=== PATIENT | female | born 1975 | race Two or more races ===

== ENCOUNTER 2024-10-08 10:36 | Emergency (ER) | payer MEDICAID, SELFPAY ==
--- NOTE | 2024-10-08 | XR_ITS ---
Examinations: MRI Brain without intravenous contrast. MRI brain with intravenous contrast MRA brain with intravenous contrast. MRA brain without intravenous contrast MRA neck with intravenous contrast Date and time of exam: October 08, 2024 1642 hours Comparison December 18, 2021 INDICATIONS: Right-sided headaches, upper and lower right extremity sensory deficit heaviness in the right leg 2 days Technique: Multiple axial and sagittal images of the brain have been obtained Siemens high-resolution 1.5 Shonda short bore scanner is utilized. Sagittal sections, T1-weighted, TR 500, TE 14 Axial sections proton density and T2-weighted, TR 3,000, TE 34, TR 3,000, TE 91 Inversion recovery axial images, TR 9,260, TE 111, TI 2,500 Diffusion weighted images, axial sections, TR 4,800, TE 128, B value 1,000 Axial sections, ADC map, TR 4,800, TE 128. Contrast images have been obtained post intravenous 19 cc Gadolinium. T1-weighted axial and coronal images post contrast have been obtained. Angiographic images of neck and brain are obtained pre and post contrast. 3-D post processing performed, including brain, extracranial neck arterial maximum intensity projections Findings: Sellaturcica is not enlarged. The optic chiasm and infundibular stalk are not remarkable. Prepontine and interpeduncular cisterns are not enlarged. No localized enlargement of the medulla or lisandro. Fourth ventricle and cerebellar tonsils normal in position. Subacute hemorrhage is not seen. Fourth ventricle is midline. Mass in the cerebellopontine angle region is not evident. 7th and 8th nerve complexes exhibits symmetry. Globes are symmetrical with no retro-orbital mass. Increased white matter signal evident, punctate foci increased signal in the brainstem, FLAIR image 10, punctate focus left frontal white matter FLAIR image 15 as well as FLAIR image 16 and 17, punctate foci increased signal in left parietal white matter FLAIR image 17, right frontal white matter FLAIR image 20 Diffusion-weighted images demonstrateno focus of restricted diffusion. Mass-effect upon the ventricular system is not identified. Abnormal contrast enhancement is not seen. MRA brain carotid images no carotid stenoses, no cerebral large vessel occlusions Impression: Scattered punctate foci increased signal in the cerebral white matter and brainstem demyelinating disease pattern No acute infarct
[2024-10-08 10:51] VITALS: BP 149/88; PULSE 94; RESP 18; TEMP 36.8; O2SAT 98; BMI 26.1
--- NOTE | 2024-10-08 11:03 | XR_ITS ---
Examination: CT brain head without contrast. 2-D sagittal coronal reconstructions Date and time of exam:October 08, 2024 1113 hours Comparison 02/11/2024 INDICATIONS: Right-sided headache beginning 2 days ago CTDI: vol (mGy):46.7 DLP: (mGycm):997 Technique: Multiple CT axial sections of the brain have been obtained, 5 mm slice thickness. Contrast has not been administered. 2-D sagittal, coronal reconstructions have been obtained Low dose protocols were performed. One or more of the following dose reduction techniques were used; automated exposure control, adjustment of the mA and/or KV according to patient size, use of iterative reconstruction technique. Findings: No significant ventricular enlargement. Intra-axial or extra-axial hemorrhage density is not seen. No mass effect or midline shift Basal cisterns are not remarkable. Fourth ventricle is midline. Cranial vault intact. Impression: Negative for acute hemorrhage, mass effect or midline shift Advise clinical correlation and follow-up accordingly
--- NOTE | 2024-10-08 11:04 | PD.EDRME ---
Rapid Medical Screening Exam E Arrival date/time: 10/08/24 10:36 49-year-old female with a history of a stroke, presents to the emergency room with a chief complaint of a headache to the right side of her head and right weakness to her lower extremities that began yesterday afternoon. I have greeted and performed a focused initial assessment of this patient. A comprehensive ED assessment and evaluation of the patient, analysis of all test results, and completion of the medical decision making process will be conducted by additional ED providers. Chief Complaint: Headache Vital signs: Vital Signs Temperature 98.2 F 10/08/24 10:51 Pulse Rate 94 10/08/24 10:51 Respiratory Rate 18 10/08/24 10:51 Blood Pressure 149/88 H 10/08/24 10:51 Pulse Oximetry (%) 98 10/08/24 10:51 Oxygen Delivery Method Room Air 10/08/24 10:51 Vital signs reviewed by provider: Yes
[2024-10-08 12:14] LABS: Basophils # (Auto) 0.1 Thou/mm3 (0.0-0.2); Basophils % (Auto) 1 % (0-2.5); Eosinophils # (Auto) 0.1 Thou/mm3 (0.0-0.5); Eosinophils % (Auto) 2 % (0-10); Hematocrit 44.1 % (36.0-46.0); Hemoglobin 15.6 g/dL (12.0-16.0); Immature Granulocytes % (Auto) 0 % (0-0); Immature Granulocytes Auto 0.02 Thou/mm3 (0.00-0.00); Lymphocytes # (Auto) 2.5 Thou/mm3 (1.0-4.8); Lymphocytes % (Auto) 33 % (10-50); Mean Corpuscular HGB Conc 35.4 g/dl (31.0-37.0); Mean Corpuscular Hemoglobin 31.3 pg (25.0-35.0); Mean Corpuscular Volume 89 fL (80-100); Monocytes # (Auto) 0.4 Thou/mm3 (0.0-0.8); Monocytes % (Auto) 5 % (0-12); Neutrophils # (Auto) 4.6 Thou/mm3 (1.8-7.7); Neutrophils % (Auto) 60 % (37-80); Nucleated Red Blood Cell % 0 /100 WBC (0); Platelet Count 242 Thou/mm3 (140-440); RDW Standard Deviation 39.2 fL (36.4-46.3); Red Blood Count 4.98 Miln/mm3 (4.00-5.20); White Blood Count 7.7 Thou/mm3 (3.6-11.0)
[2024-10-08 12:28] LABS: Partial Thromboplastin Time 27.6 Seconds (22.0-36.0); Prothrombin Time 11.1 Seconds (9.0-12.2)
[2024-10-08 12:36] LABS: Alanine Aminotransferase 16 U/L (10-49); Albumin, Serum 4.6 gm/dL (3.5-5.0); Albumin/Globulin Ratio 1.8 (1.2-2.2); Alkaline Phosphatase 67 U/L (46-116); Anion Gap 7 (7-16); Aspartate Amino Transferase 16 U/L (0-34); BUN/Creatinine Ratio 18 Ratio (12-20); Bilirubin,Total 0.8 mg/dL (0.3-1.2); Blood Urea Nitrogen 14 mg/dL (9-23); Calcium 9.1 mg/dL (8.3-10.6); Calcium (Corrected) 9.1 mg/dL (8.5-10.1); Carbon Dioxide 28.6 mMol/L (20.0-31.0); Chloride 102 mMol/L (98-107); Creatinine (Component) 0.8 mg/dL (0.6-1.3); Estimated Creatinine Clearance 85.1 mL/min (>60); Globulin 2.5 gm/dL (2.3-3.5); Glucose 168 mg/dL (74-106); Osmolality,Calculated 280 (275-295); Potassium 3.9 mMol/L (3.4-5.1); Sodium 138 mMol/L (136-145); Total Protein 7.1 gm/dL (5.7-8.2); eGFR > 60 See Note
[2024-10-08] MEDS: ACETAMINOPHEN 325 MG TABLET 650 MG PO (14:23)
--- NOTE | 2024-10-08 14:59 | PD.EDADULT ---
ED General RME/HPI General Chief complaint: Headache Stated complaint: Headache, shortness of breath, cant move right leg Time Seen by Provider: 10/08/24 16:34 Arrival date/time: 10/08/24 10:36 49-year-old female with a past medical history of right sided thromboembolic stroke as well as migraines presents to the ED with a complaint of right sided headache with right upper extremity and right lower extremity sensory deficit. She also states that her right leg feels heavy when she is walking. She has photophobia and phonophobia. She has not blurry vision as well. She denies any recent illness with fever, chills, cough, upper respiratory complaints. She has had nausea and vomiting but no diarrhea or abdominal pain. She has tried Tylenol and ibuprofen for her pain which has not been helpful. She has tried a previous migraine medication that melts under her tongue however she does not recall the name of the medication. Mode of arrival: wheelchair Limitations: language barrier ([employer] Clerk utilized.) RME / HPI RME / HPI narrative: 10/08/24 10:36 49-year-old female with a history of a stroke, presents to the emergency room with a chief complaint of a headache to the right side of her head and right weakness to her lower extremities that began yesterday afternoon. I have greeted and performed a focused initial assessment of this patient. A comprehensive ED assessment and evaluation of the patient, analysis of all test results, and completion of the medical decision making process will be conducted by additional ED providers. Related Data Home Medications ?Medication ?Instructions ?Recorded ?Confirmed canagliflozin 100 mg tablet 100 mg PO QDAY 07/23/19 07/23/19 (Invokana) aspirin 81 mg tablet,delayed 81 mg PO QDAY 01/29/21 01/29/21 release Previous Rx's ?Medication ?Instructions ?Recorded acetaminophen-caffeine 500 mg-65 1 tab PO Q6H PRN pain #30 tabs 02/11/24 mg tablet (Excedrin Tension Headache) ibuprofen 600 mg tablet 600 mg PO Q6H #30 tabs 02/11/24 tramadol 50 mg tablet 50 mg PO BID PRN pain #6 tabs 02/11/24 Allergies Allergy/AdvReac Type Severity Reaction Status Date / Time Sulfa (Sulfonamide Allergy Intermediate Rash Verified 10/08/24 10:40 Antibiotics) Review of Systems Review of Systems Systems Reviewed: All systems reviewed, normal except as documented Past Medical History Past Medical History NEUROLOGIC: Positive Migraine; Negative Neurological Disorders CARDIAC: Negative Congestive Heart Failure RESPIRATORY: Positive Chronic Obstructive Pulmonary Disease (COPD) GASTROINTESTINAL: Positive Gastrointestinal Disorders (Gastritis); Negative Gastroesophageal Reflux Disease GENITOURINARY: Negative Genitourinary Disorders or Renal Disease ENT: Positive Cataracts (right eye) ENDOCRINE: Positive Endocrine Disorders and Diabetes Mellitus Type 2; Negative Diabetes Mellitus Type 1 HEMATOLOGIC: Negative Blood Disorders OTHER HISTORY: Positive Falls (3-4 years ago) and Chicken Pox; Negative Blood Transfusions or Cancer Surgical History SURGICAL: Positive Section; Negative Joint Replacement Social History SMOKING STATUS: Never smoker ED Exam Narrative Physical exam: 49-year-old female appears in moderate pain distress, photophobia and phonophobia noted. Right pupil 1 to 2 mm, left pupil 2 mm. EOM's intact. Facial sensory is normal. Contralateral deficit (cheek), no tongue deviation. +Left lateral gaze deviation (normal per family). Equal brush painter strength, equal pedal push and pull. Right upper and lower extremity sensory deficit noted. DTRs unable to be obtained bilaterally (inability to relax). Lungs are clear, regular rate and rhythm without murmurs noted. Abdomen is soft and nontender. Palpation of the scalp reveals multiple small occipital adenopathy with 1 folliculitis lesion noted to the posterior scalp. General Limitations: Present language barrier (C[employer] Control Clerk utilized.) General appearance: Present in distress Course Course Course Narrative: Patient was given Tylenol 650 mg p.o. Labs reveal a normal CBC and normal coags. Chemistry panel is normal with the exception of an elevated glucose of 168. Urine hCG is negative. Head CT reveals: Negative for acute hemorrhage, mass effect or midline shift Brain MRI reveals: Scattered punctate foci increased signal in the cerebral white matter and brainstem demyelinating disease pattern. No acute infarct. She was given Benadryl 25 mg p.o. as well as Compazine 10 mg p.o. She was then given Toradol 30 mg IV, Benadryl 25 mg IV as well as Reglan 10 mg IV. Patient was discharged home in stable and improved condition. Quality Measures none Orders Category Date Time Status IV [Insert IV] NOW Care 10/08/24 15:[address] head/brain wo con Stat Exams 10/08/24 11:03 Completed MR brain wwo MRA brn wo spain w Stat Exams 10/08/24 Completed CBC Stat Lab 10/08/24 12:04 Completed CMP [Comprehensive Metabolic Panel] Stat Lab 10/08/24 12:04 Completed HCG Qualitative,Urine Stat Lab 10/08/24 15:42 Completed PT [Prothrombin Time with INR] Stat Lab 10/08/24 12:04 Completed PTT [Partial Thromboplastin Time] Stat Lab 10/08/24 12:04 Completed Acetaminophen Tab [Tylenol Tab] Med 10/08/24 11:03 Discontinued 650 mg PO X1 ONE DiphenhydrAMINE INJ [Benadryl Inj] Med 10/08/24 19:21 Discontinued 25 mg IV X1 ONE DiphenhydrAMINE [Benadryl] Med 10/08/24 15:02 Discontinued 25 mg PO X1 ONE Ketorolac Inj [Toradol Inj] Med 10/08/24 19:18 Discontinued 30 mg IVP X1 ONE Metoclopramide Inj [Reglan Inj] Med 10/08/24 19:18 Discontinued 10 mg IVP X1 ONE Prochlorperazine Maleate [Compazine] Med 10/08/24 15:02 Discontinued 10 mg PO X1 ONE Reevaluation(s) Reevaluation #1: Patient is still having headache, therefore Benadryl and Compazine was ordered. Time: 15:00 Reevaluation #2: She is still having headache, therefore Toradol, Benadryl and Reglan were ordered. Time: 19:15 Reevaluation #3: Improved Time: 21:50 Vital Signs Vital signs: Vital Signs Temperature 98.2 F 10/08/24 10:51 Pulse Rate 94 10/08/24 10:51 Respiratory Rate 18 10/08/24 10:51 Blood Pressure 149/88 H 10/08/24 10:51 Pulse Oximetry (%) 98 10/08/24 10:51 Oxygen Delivery Method Room Air 10/08/24 10:51 Discharge Plan Plan Patient Disposition: HOME (Self Care) Discharge Disposition comment: Stable and improved Prescriptions/Referrals Prescriptions/Med Rec: No Action Invokana 100 mg Tablet 100 mg PO QDAY aspirin 81 mg Tablet,Delayed Release (Dr/Ec) 81 mg PO QDAY Excedrin Tension Headache 500-65 mg tablet 1 tab PO Q6H PRN (Reason: pain) Qty: 30 0RF tramadol 50 mg tablet 50 mg PO BID PRN (Reason: pain) Qty: 6 0RF ibuprofen 600 mg tablet 600 mg PO Q6H Qty: 30 0RF Referrals: Osiris Villareal PA-C [Primary Care Provider] - In 1 week Problem List Clinical Impression: Atypical migraine Patient/Caregiver Discharge Instructions Education Materials: Migraines and Cluster Headaches, Headache Migraine Triggers Prevent, Headache Migraine Meds Lifestyle Additional Instructions: Follow-up with your primary care physician in 24 to 48 hours. Return to the ED for any new or worsening symptoms. Print Language: Setswana Stand Alone Forms: [employer] Award Info., Patient Portal Info Letter PA/VIVIANA Supervising Physician PA/VIVIANA Supervising Physician: Dr. Wyatt MDM Narrative MDM hospital course (for use when minimal MDM required): 49-year-old female with a past medical history of right sided thromboembolic stroke as well as migraines presents to the ED with a complaint of right sided headache with right upper extremity and right lower extremity sensory deficit. She also states that her right leg feels heavy when she is walking. She has photophobia and phonophobia. She has not blurry vision as well. She denies any recent illness with fever, chills, cough, upper respiratory complaints. She has had nausea and vomiting but no diarrhea or abdominal pain. She has tried Tylenol and ibuprofen for her pain which has not been helpful. She has tried a previous migraine medication that melts under her tongue however she does not recall the name of the medication. 49-year-old female appears in moderate pain distress, photophobia and phonophobia noted. Right pupil 1 to 2 mm, left pupil 2 mm. EOM's intact. Facial sensory is normal. Contralateral deficit (cheek), no tongue deviation. +Left lateral gaze deviation (normal per family). Equal brush painter strength, equal pedal push and pull. Right upper and lower extremity sensory deficit noted. DTRs unable to be obtained bilaterally (inability to relax). Lungs are clear, regular rate and rhythm without murmurs noted. Abdomen is soft and nontender. Palpation of the scalp reveals multiple small occipital adenopathy with 1 folliculitis lesion noted to the posterior scalp. Patient was given Tylenol 650 mg p.o. Labs reveal a normal CBC and normal coags. Chemistry panel is normal with the exception of an elevated glucose of 168. Urine hCG is negative. Head CT reveals: Negative for acute hemorrhage, mass effect or midline shift Brain MRI reveals: Scattered punctate foci increased signal in the cerebral white matter and brainstem demyelinating disease pattern. No acute infarct. She was given Benadryl 25 mg p.o. as well as Compazine 10 mg p.o. She was then given Toradol 30 mg IV, Benadryl 25 mg IV as well as Reglan 10 mg IV. Patient was discharged home in stable and improved condition. Clinical Information Provided by: patient Medical Records reviewed [facility] Meds/Rx considered, not ordered None Labs/Rad/Tests considered, not ordered None Chronic Illness/Social Conditions which may negatively complicate care or outcome(s)-explain: other (History of thromboembolic stroke and history of migraines.) EKG EKG not done Labs Labs: Interpreted by ne Lab(s) Interpretation(s): As noted above Imaging Imaging interpretation: none or see narrative above Imaging Interpretation(s): As noted above Medication Administration(s) Medication Administration History Discontinued Medications Acetaminophen (Acetaminophen 325 Mg Tablet) 650 mg PO X1 ONE Stop: 10/08/24 11:04 Last Admin: 10/08/24 14:23 Dose: 650 mg Documented By: Diphenhydramine HCl (Diphenhydramine 25 Mg Capsule) 25 mg PO X1 ONE Stop: 10/08/24 15:03 Last Admin: 10/08/24 15:27 Dose: 25 mg Documented By: ER Diphenhydramine HCl (Diphenhydramine Inj 50 Mg/Ml Vial) 25 mg IV X1 ONE Stop: 10/08/24 19:22 Last Admin: 10/08/24 21:37 Dose: 25 mg Documented By: CANDELARIA Ketorolac Tromethamine (Ketorolac Inj 30 Mg/Ml Vial) 30 mg IVP X1 ONE Stop: 10/08/24 19:19 Last Admin: 10/08/24 21:38 Dose: 30 mg Documented By: CANDELARIA Metoclopramide HCl (Metoclopramide Inj 5 Mg/Ml Vial 2 Ml) 10 mg IVP X1 ONE; Protocol Stop: 10/08/24 19:19 Last Admin: 10/08/24 21:38 Dose: 10 mg Documented By: CANDELARIA Prochlorperazine Maleate (Prochlorperazine Maleate 5 Mg Tablet) 10 mg PO X1 ONE Stop: 10/08/24 15:03 Last Admin: 10/08/24 15:03 Dose: Not Given Documented By: Non-Admin Reason: Patient Refused As noted above Diagnosis Differential Diagnosis ED Complaint MDM: Ischemic stroke, hemorrhagic stroke, atypical migraine Diagnoses ruled out and/or further discussions: Hemorrhagic stroke, ischemic stroke
[2024-10-08 15:00] VITALS: BP 116/80; PULSE 87; RESP 18; TEMP 36.6; O2SAT 100
[2024-10-08] MEDS: DiphenhydrAMINE 25 MG CAPSULE PO (15:27)
[2024-10-08 16:26] LABS: HCG Qualitative,Urine Negative
[2024-10-08] MEDS: DiphenhydrAMINE INJ 50 MG/ML VIAL 25 MG IV (21:37)
[2024-10-08] MEDS: METOCLOPRAMIDE INJ 5 MG/ML VIAL 2 ML 10 MG IVP (21:38)
[2024-10-08] MEDS: KETOROLAC INJ 30 MG/ML VIAL IVP (21:38)
== END 2024-10-08 22:40 | disposition home or self-care (01) ==
PROVIDERS: Nurse Practitioner Family; Physician Assistant; Emergency Provider Family Medicine; PCP Specialist
DX: G43.009 Migraine without aura, not intractable, without status migrainosus (principal)
CPT/HCPCS: 36415; 70450; 70546; 70548; 70553; 80053; 81025; 85025; 85610; 85730; 96374; 96375; 99284; A9579; J1200; J1885; J2765; A9270

== ENCOUNTER 2025-03-06 13:37 | Inpatient (IN) | payer MEDICAID, SELFPAY ==
[2025-03-06] VITALS (8 sets, daily range): BP systolic 111–158; BP diastolic 77–94; PULSE 87–107; RESP 15–100; TEMP 36.4–36.9; O2SAT 98–100; BMI 25.8
--- NOTE | 2025-03-06 13:52 | EKG_ITS ---
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
--- NOTE | 2025-03-06 13:52 | XR_ITS ---
Examination: CT brain head without contrast. 2-D sagittal coronal reconstructions Date and time of exam:March 06, 2025, 1357 hrs. Indications: Stroke alert, onset focal neurologic deficit today including blurred vision headaches right-sided body weakness CTDI: vol (mGy):48.9 DLP: (mGycm):1000 Technique: Multiple CT axial sections of the brain have been obtained, 5 mm slice thickness. Contrast has not been administered. 2-D sagittal, coronal reconstructions have been obtained Low dose protocols were performed. One or more of the following dose reduction techniques were used; automated exposure control, adjustment of the mA and/or KV according to patient size, use of iterative reconstruction technique. Findings: No significant ventricular enlargement. Tiny intracranial calcifications Intra-axial or extra-axial hemorrhage density is not seen. No mass effect or midline shift Basal cisterns are not remarkable. Fourth ventricle is midline. Cranial vault intact. Impression: Negative for acute hemorrhage, mass effect or midline shift
--- NOTE | 2025-03-06 13:52 | XR_ITS ---
Examination: AP chest single view Technique: Sitting portable AP chest single view Date and time: March 06, 2025, 1421 hrs., Comparison November 19, 2023 Indications: Headache 1 week with shortness of breath worse today Findings: Normal heart size. Lungs are clear. The osseous structures are intact Impression: No active disease.
--- NOTE | 2025-03-06 13:52 | XR_ITS ---
Examination: CTA carotids with intravenous contrast CTA brain, head with intravenous contrast. 2-D sagittal, coronal reconstructions. 3-D reconstructions. Exam date and time: March 06, 2025, 1414 hrs. Indications: Stroke alert, onset blurred vision headaches right-sided body weakness today CTDI: vol (mGy) 11.8 DLP: (mGycm) 446 Technique: Multiple CTA axial brain, head carotid images post intravenous contrast injection 75 cc, [id number]. 2-D sagittal, coronal reconstructions. 3-D reconstructions, 3-D post processing including vascular maximum intensity projection images. Low dose protocols were performed. One or more of the following dose reduction techniques were used; automated exposure control, adjustment of the mA and/or KV according to patient size, use of iterative reconstruction technique. Findings: 4 mm posterior right thyroid lobe nodule No significant common carotid carotid bifurcation or internal carotid artery stenoses Dominant vertebral artery in the neck with no critical vertebral artery stenoses Intracranial vertebral arteries basilar artery posterior cerebral branches fill with no large vessel occlusions Petrous juxtasellar supraclinoid portions internal carotid arteries, M1 segments middle cerebral arteries middle cerebral artery trifurcation vessels and anterior cerebral arteries fill with no large vessel occlusions Impression: No significant neck arterial stenoses No cerebral large vessel arterial occlusions or thrombus
[2025-03-06 14:26] LABS: Basophils # (Auto) 0.0 Thou/mm3 (0.0-0.2); Basophils % (Auto) 1 % (0-2.5); Eosinophils # (Auto) 0.2 Thou/mm3 (0.0-0.5); Eosinophils % (Auto) 2 % (0-10); Hematocrit 43.7 % (36.0-46.0); Hemoglobin 15.5 g/dL (12.0-16.0); Immature Granulocytes Auto 0.02 Thou/mm3 (0.00-0.00); Lymphocytes # (Auto) 3.0 Thou/mm3 (1.0-4.8); Lymphocytes % (Auto) 48 % (10-50); Mean Corpuscular HGB Conc 35.5 g/dl (31.0-37.0); Mean Corpuscular Hemoglobin 30.9 pg (25.0-35.0); Mean Corpuscular Volume 87 fL (80-100); Monocytes # (Auto) 0.3 Thou/mm3 (0.0-0.8); Monocytes % (Auto) 4 % (0-12); Neutrophils # (Auto) 2.8 Thou/mm3 (1.8-7.7); Neutrophils % (Auto) 45 % (37-80); Nucleated Red Blood Cell # 0.00 Thou/mm3 (0.00-0.00); Nucleated Red Blood Cell % 0 /100 WBC (0); Platelet Count 238 Thou/mm3 (140-440); RDW Standard Deviation 37.3 fL (36.4-46.3); Red Blood Count 5.01 Miln/mm3 (4.00-5.20); White Blood Count 6.2 Thou/mm3 (3.6-11.0)
--- NOTE | 2025-03-06 14:29 | EDNOTE_ITS ---
Neuro Symptoms Deficit-RME/HPI General Chief Complaint: Neuro Symptoms/Deficit Stated Complaint: WARNER x 1 WK, WORSE AT 1330 TODAY & RIGHT FOOT NUMB Time Seen by Provider: 03/06/25 13:52 Arrival date/time: 03/06/25 13:37 Limitations: no limitations RME / HPI RME / HPI Narrative: DR. MARIA ELENA BLACKWELL ED EVALUATION: 50-year-old female with past medical history significant for diabetes mellitus and migraines presenting to the Emergency Department with complaints of a headache for one week, worsening today. Associated with right leg numbness and blurred vision. She denies nausea, vomiting, or chest pain. No recent illnesses or social history of substance use. Patient was previously admitted on 02/08/2024 for similar symptoms, during which a CVA was ruled out by Dr. Waldron. MRI at that time was negative for acute infarction and consistent with findings seen in chronic or hemiplegic migraine. Related Data Home Medications ?Medication ?Instructions ?Recorded ?Confirmed canagliflozin 100 mg tablet 100 mg PO QDAY 07/23/19 (Invokana) aspirin 81 mg tablet,delayed 81 mg PO QDAY 01/29/21 release Previous Rx's ?Medication ?Instructions ?Recorded acetaminophen-caffeine 500 mg-65 1 tab PO Q6H PRN pain #30 tabs 02/11/24 mg tablet (Excedrin Tension Headache) ibuprofen 600 mg tablet 600 mg PO Q6H #30 tabs 02/10 tramadol 50 mg tablet 50 mg PO BID PRN pain #6 tab s 02/11/24 Allergies Allergy/AdvReac Type Severity Reaction Status Date / Time Sulfa (Sulfonamide Allergy Severe Rash Verified 03/06/25 13:49 Antibiotics) Review of Systems Review of Systems Systems Reviewed: All systems reviewed, normal except as documented Past Medical History Past Medical History NEUROLOGIC: Positive Migraine RESPIRATORY: Positive Chronic Obstructive Pulmonary Disease (COPD) GASTROINTESTINAL: Positive Gastrointestinal Disorders ENT: Positive Cataracts ENDOCRINE: Positive Endocrine Disorders and Diabetes Mellitus Type 2 OTHER HISTORY: Positive Falls and Chicken Pox Surgical History SURGICAL: Positive Section Social History SMOKING STATUS: Never smoker SUBSTANCE USE: does not use ALCOHOL: Never ED Exam General Limitations: Present no limitations General appearance: Present alert and in no apparent distress Head Head exam: Present atraumatic, normocephalic and normal inspection Eye Eye exam: Present normal appearance, PERRL and EOMI ENT ENT exam: Present normal exam, normal oropharynx and mucous membranes moist Neck Neck exam: Present normal inspection, full ROM and trachea midline Chest Chest inspection: Present normal inspection and symmetric chest wall rise Respiratory Respiratory exam: Present normal lung sounds bilaterally Cardiovascular Cardiovascular exam: Present normal rhythm, tachycardia and normal heart sounds Abdominal Exam Abdominal exam: Present soft and normal bowel sounds; Absent distention, tenderness or guarding Extremities Exam Extremities exam: Present normal inspection and full ROM Back Exam Back exam: Present normal inspection and full ROM Neurological Exam Neurological exam: Present alert, oriented X3 and CN II-XII intact Psychiatric Psychiatric exam: Present normal affect and normal mood Skin Skin exam: Present warm, dry, intact and normal color Course Quality Measures none Orders Category Date Time Status Bedside Blood Glucose NOW Care 03/06/25 13:52 Active Phosphorus Processing Supervisor NOW Care 03/06/25 13:52 Active Continuous Pulse Oximetry NOW Care 03/06/25 13:52 Completed EKG (ED ONLY) *Do not use* NOW Care 03/06/25 13:52 Completed In and Out Catheter NEEDED Care 03/06/25 13:52 Active Insert IV NOW Care 03/06/25 13:52 Active NIH Stroke Scale now Care 03/06/25 13:52 Active NPO NOW Care 03/06/25 13:52 Active Neuro Check Q1HR Care 03/06/25 13:53 Active Nurse Swallow Screen x1 Care 03/06/25 13:52 Active Consult to Neurology / Tele-Neurology Routine Cons 03/06/25 13:[address] angio stroke protocol Stat Exams 03/06/25 13:[address] stroke protocol Stat Exams 03/06/25 13:52 Completed EKG (ED Only) Stat Exams 03/06/25 13:52 Draft XR chest 1V portable Stat Exams 03/06/25 13:52 Completed CBC Stat Lab 03/06/25 14:02 Completed Comprehensive Metabolic Panel Stat Lab 03/06/25 14:02 Completed Drug Screen,Urine Stat Lab 03/06/25 13:52 Ordered HCG Titer if Positive Stat Lab 03/06/25 14:02 Completed Magnesium Stat Lab 03/06/25 14:02 Completed Partial Thromboplastin Time Stat Lab 03/06/25 14:02 Completed Prothrombin Time with INR Stat Lab 03/06/25 14:02 Completed Troponin I Stat Lab 03/06/25 14:02 Completed Urinalysis, C/S if Indicated Stat Lab 03/06/25 13:52 Ordered Acetaminophen Tab [Tylenol Tab] Med 03/06/25 15:15 Discontinued 650 mg PO X1 ONE Ringers Lactated 1000 ml [Lactated Ringers] 1,000 ml Med 03/06/25 15:15 Active IV 999 mls/hr Oxygen Delivery NOW RT 03/06/25 13:52 Active Vital Signs Vital signs: Vital Signs Pulse Rate 107 H 03/06/25 13:53 Respiratory Rate 18 03/06/25 13:53 Blood Pressure 158/86 H 03/06/25 13:53 Pulse Oximetry (%) 99 03/06/25 13:53 Oxygen Delivery Method Room Air 03/06/25 13:53 Neuro Symptoms / Deficit MDM Narrative MDM Narrative:: Patient is a 50-year-old female with medical history notable for prior TIA, depression, migraines to the Emergency Department concerns for blurred vision, headache as well as numbness in her right leg and weakness in her right leg. Vital signs and exam as listed. Given patient with above neurofindings, activated as a stroke., Complex migraine, metabolic disturbance among others patient was evaluated by teleneurologist. Does not recommend tenecteplase at this time. Ordered CT brain, CT angio as well as labs and EKG. Patient is not , no acute metabolic disturbance. No acute hematologic abnormality. CT brain unremarkable, CT angio of the head and neck without any evidence of large vessel occlusion. On reevaluation patient hemodynamically stable not in distress, symptoms significantly improved will admit to the hospital service for workup and management of her acute neurologic symptoms concerning for possible TIA. Dinorah Merino am scribing for and in the presence of Dr. Magallon. Patient data External records reviewed:: [facility] previous records Clinical information provided by:: patient Social determinants that could affect healthcare access:: none Patient has the following chronic illnesses:: Medical history significant for diabetes mellitus and migraines. Patient was previously admitted on 02/08/2024 for similar symptoms, during which a CVA was ruled out by Dr. Waldron. MRI at that time was negative for acute infarction and consistent with findings seen in chronic or hemiplegic migraine. How is presenting disease/condition affected by chronic disease/condition?: exacerbated by Evaluation data The following diagnostics were reviewed and interpreted by me:: lab results, radiology exam(s) and EKG tracing(s) (My interpretation: EKG performed at 1413 hours, sinus tachycardia, rate 103, normal intervals, non specific T wave changes, not a cardiac alert) Lab and/or radiology exams considered but not ordered:: none Interpretation Summary: See MDM narrative above. Medications / Prescriptions Medications or Prescriptions considered but not ordered:: none Medication administrations:: Medication Administration History Lactated Ringer's (Lactated Ringers) 1,000 mls @ 999 mls/hr IV .Q1H1M ONE Stop: 03/06/25 16:15 Last Admin: 03/06/25 15:34 Dose: 999 mls/hr Documented By: MARY Discontinued Medications Acetaminophen (Acetaminophen 325 Mg Tablet) 650 mg PO X1 ONE Stop: 03/06/25 15:16 Last Admin: 03/06/25 15:34 Dose: Not Given Documented By: MARY Non-Admin Reason: Patient Refused see above if any Consultations Consultation(s) initiated? (list below): Yes Diagnosis Neuro Differential Diagnosis: other (Complicated migraine, TIA, and ischemic stroke.) Most likely diagnosis given after review of the tests above:: TIA Admission Indicated Admission indicated?: indicated Admission Request Was there a request for admission?: Yes Admission Attestation Admission request attestation: Discussed case with Hospitalist service regarding admission. Discussed patients ED course, exam findings, labs, and radiology results. The Hospitalist [agrees] to accept the patient for admission. Disposition Plan Disposition Plan: Admit Critical Care Time Critical Care Time Critical Care Time: Yes Total Critical Care Time (min.): 45 Attestation: Total critical care time: Approximately?45?minutes Due to a high probability of clinically significant, life threatening deterioration, the patient required my highest level of preparedness to intervene emergently and I personally spent this critical care time directly and personally managing the patient. This critical care time included obtaining a history; examining the patient; pulse oximetry; ordering and review of studies; arranging urgent treatment with development of a management plan; evaluation of patient's response to treatment; frequent reassessment; and, discussions with other providers. This critical care time was performed to assess and manage the high probability of imminent, life-threatening deterioration that could result in multi-organ failure. It was exclusive of separately billable procedures and treating other patients and teaching time. Please see MDM section and the rest of the note for further information on patient assessment and treatment Discharge Plan Plan Patient Disposition: Admit Acute Care w/in Hospital Prescriptions/Referrals Prescriptions/Med Rec: No Action Invokana 100 mg Tablet 100 mg PO QDAY aspirin 81 mg Tablet,Delayed Release (Dr/Ec) 81 mg PO QDAY Excedrin Tension Headache 500-65 mg tablet 1 tab PO Q6H PRN (Reason: pain) Qty: 30 0RF tramadol 50 mg tablet 50 mg PO BID PRN (Reason: pain) Qty: 6 0RF ibuprofen 600 mg tablet 600 mg PO Q6H Qty: 30 0RF Referrals: Osiris Villareal PA-C [Primary Care Provider] - In 1 week Problem List Clinical Impression: Transient cerebral ischemia Patient/Caregiver Discharge Instructions Print Language: American Stand Alone Forms: [facility]ina Award Info., Patient Portal Info Letter
[2025-03-06 14:33] LABS: INR 1.0 (0.9-1.3); Partial Thromboplastin Time 27.0 Seconds (22.0-36.0); Prothrombin Time 10.3 Seconds (9.0-12.2)
[2025-03-06 14:35] LABS: Alanine Aminotransferase 16 U/L (10-49); Albumin, Serum 4.5 gm/dL (3.5-5.0); Albumin/Globulin Ratio 1.8 (1.2-2.2); Alkaline Phosphatase 69 U/L (46-116); Anion Gap 11 (7-16); Aspartate Amino Transferase 16 U/L (0-34); BUN/Creatinine Ratio 14 Ratio (12-20); Bilirubin,Total 0.5 mg/dL (0.3-1.2); Blood Urea Nitrogen 10 mg/dL (9-23); Calcium 9.7 mg/dL (8.3-10.6); Calcium (Corrected) 9.7 mg/dL (8.5-10.1); Carbon Dioxide 26.4 mMol/L (20.0-31.0); Chloride 105 mMol/L (98-107); Creatinine (Component) 0.7 mg/dL (0.6-1.3); Estimated Creatinine Clearance 99.2 mL/min (>60); Globulin 2.5 gm/dL (2.3-3.5); Glucose 110 mg/dL (74-106); Magnesium 1.9 mg/dL (1.6-2.6); Osmolality,Calculated 283 (275-295); Potassium 3.9 mMol/L (3.4-5.1); Sodium 142 mMol/L (136-145); Total Protein 7.0 gm/dL (5.7-8.2); Troponin I < 0.002 ng/mL (0.0-0.045); eGFR > 60 See Note
[2025-03-06 14:59] LABS: HCG Titer if Positive Negative
[2025-03-06] MEDS: RINGERS LACTATED 1000 ML 1,000 ML 999 ML IV (15:34)
--- NOTE | 2025-03-06 17:04 | ECHO_ITS ---
Transthoracic Echo Report Ht (in): 66 Wt (lb): 160 Exam Location: Echo Lab Status: Emergency Classroom Technology Technician: Sulema Vizcaino Indications: Procedure Performed: BP: 110 / 75 HR: 87 MEASUREMENTS (Male / Female) Normal Values 2D ECHO LV Diastolic Diameter PLAX 4.1 cm 4.2 - 5.9 / 3.9 - 5.3 cm LV Systolic Diameter PLAX 2.7 cm IVS Diastolic Thickness 0.9 cm 0.6 - 1.0 / 0.6 - 0.9 cm LVPW Diastolic Thickness 1.0 cm 0.6 - 1.0 / 0.6 - 0.9 cm LV Relative Wall Thickness 0.5 LVOT Diameter 1.9 cm LA Volume Index 17.2 cm?/m? 16 - 28 cm?/m? Ascending Aorta Diameter 2.9 cm M-MODE AV Cusp Separation MM 1.0 cm DOPPLER AV Peak Velocity 125.0 cm/s AV Peak Gradient 6.3 mmHg AV Mean Gradient 3.0 mmHg AV Velocity Time Integral 22.5 cm LVOT Peak Velocity 73.1 cm/s LVOT Peak Gradient 2.1 mmHg LVOT Velocity Time Integral 15.1 cm LVOT Cardiac Index 2012.1 cm?/min?m? AV Area Cont Eq vti 1.9 cm? AV Area Cont Eq pk 1.7 cm? MV Area PHT 7.3 cm? Mitral E Point Velocity 63.3 cm/s Mitral A Point Velocity 92.1 cm/s Mitral E to A Ratio 0.7 LV E' Lateral Velocity 7.0 cm/s Mitral E to LV E' Lateral Ratio 9.1 LV E' Septal Velocity 5.3 cm/s Mitral E to LV E' Septal Ratio 11.9 TR Peak Velocity 125.5 cm/s TR Peak Gradient 6.3 mmHg PV Peak Velocity 70.4 cm/s PV Peak Gradient 2.0 mmHg FINDINGS Left Ventricle Normal left ventricular size, wall thickness, systolic function with no obvious regional wall motion abnormalities. There is grade I diastolic dysfunction of the left ventricle (impaired relaxation pattern). . The ejection fraction is visually estimated at 55-60%. Right Ventricle The right ventricle is normal in size and systolic function. Left Atrium The left atrium is normal by two-dimensional, color flow and Doppler imaging with no structural abnormalities, no thrombus formation present. Right Atrium The right atrium is normal by two-dimensional imaging, color flow and Doppler imaging with no structural abnormalities, no thrombus formation present. Atrial Septum The interatrial septum appears normal with no evidence of a shunt. Aorta The aorta is normal by two-dimensional, color flow and Doppler interrogation. Mitral Valve The mitral valve is normal by two-dimensional, color flow and Doppler interrogation. Trace mitral regurgitation. Aortic Valve The aortic valve is trileaflet and normal by two-dimensional, color flow and Doppler interrogation. There is no significant aortic valve regurgitation. Tricuspid Valve The tricuspid valve is normal by two-dimensional, color flow and Doppler interrogation. There is trace tricuspid valve regurgitation. Pulmonic Valve The pulmonic valve is not well visualized. There is no significant pulmonic valve regurgitation. Vessels The pulmonary artery appears normal. The inferior vena cava pulmonary and hepatic veins appear normal. Pericardium The pericardium is normal by two-dimensional imaging. There is no significant pericardial effusion. CONCLUSIONS Indication: Stroke - rule out cardio embolic sources - LA / ASHLEY or LV thrombus Normal left ventricular size and function. Grade I diastolic dysfunction. Estimated EF 55-60% Normal right ventricular size and function. Normal RVSP. Trace mitral and trace tricuspid regurgitation noted. No clear LV thrombus but canot rule out LA or ASHLEY thrombus. Conisder JOMAR if high index of clinical suspicion. No significant change since the prior study of 01/20/24 Charles Rivera (Electronically Signed) Final Date: 07 March 2025 19:46
--- NOTE | 2025-03-06 17:07 | ESHP_ITS ---
<Statement entered by Michelle Montgomery MD - 03/13/25 12:10> I reviewed above note and agree with findings and plans. I have also personally examined the patient with medicine team and went over assessment and plan with medical team including international project engineer and resident physician. <Statement entered by Bill Stringer MD - 03/07/25 07:01> I saw and examined patient personally and supervised PGY 1 resident, Dr. Vargas with formulating a management plan. I agree with the documentation with the exceptions as listed below. Patient is a 50-year-old female with past medical history significant for NIDDM type II, chronic migraines and history of hemiplegic migraine who presented with right-sided weakness and blurry vision. Patient will be admitted for stroke workup. Problem list: 1. Stroke rule out 2. Chronic migraines 3. History of hemiplegic migraines 4. NIDDM type II Patient previously presented on 01/19/2024 with similar symptoms to this admission. At that point in time she did receive TNK for stroke rule out, however on further investigation it was ruled out and she was diagnosed with hemiplegic migraines. On this admission CT brain/CTA were negative for any acute hemorrhage, mass effect, midline shift or large vessel occlusion. Currently pending in-house neurology recommendations, MRI brain stroke protocol, echo with bubble study, TSH, lipid panel, HbA1c, NURSE COLLEGE eval and physiotherapy. For her migraines, patient is on Reglan 10 mg IV every 8 hourly as needed. Plan of care discussed with Attending Dr. Ulises Stringer MD PGY 2 Disclaimer: This note was dictated by speech recognition. Minor errors in railway switchman may be present due to voice recognition software. Documentation for date of: 03/06/25 HPI History of Present Illness History of present illness: 50-year-old female with past medical history significant for diabetes mellitus and migraines presenting to the Emergency Department with complaints of a headache for one week, worsening today. Associated with right leg numbness and blurred vision. She has her eyes closed during exam, but states the light does not bother her; however endorses loud noises being extremely bothersome. She describes the discomfort as a right sided headache located behind her eye that makes the right side of her face feel like its burning and her right neck tense, she also endorses that her right foot and leg feel heavier. She denies nausea, vomiting, or chest pain. No recent illnesses or social history of substance use. NIH: 1 Patient was previously admitted on 02/08/2024 for similar symptoms, during which a CVA was ruled out by Dr. Waldron. MRI at that time was negative for acute infarction and consistent with findings seen in chronic or hemiplegic migraine. In the ED patient presented with vitals: HR 107 RR 18 BP 158/86 O2 99%. Labs were noncontibutory, UA showed hematuria, imaging (CXR CT head CTA) were all unremarkable. GIven 1 L LR and 325mg Acetominophen. Neuro was consulted and recommended MRI for stroke r/o. Code: Full Insulin: yes, a lot Medical Hx: DM (insulin), migraines Medications: excedrine, aspirin, ibuprofen, tramadol Allergies: sulfa drug Surgical history: , optho sx for eye veins Fhx: Noncontributory (no family members with similar symptoms) Living: With Alcohol: Denies Cigarettes/tobacco: Denies Recreational drugs: Denies Patient admitted for: Stroke r/o All 12 systems reviewed and were negative except otherwise stated in HPI. Exam Vital Signs Temp Pulse Resp BP Pulse Ox O2 Del Method 98.4 F 104 H 18 153/87 H 100 Room Air 03/06/25 14:15 03/06/25 14:15 03/06/25 14:15 03/06/25 14:15 03/06/25 14:15 03/06/25 14:15 Narrative Exam GENERAL APPEARANCE: AOx3. NAD, activity normal for age, well developed/ well nourished, no cyanosis, pallor, or diaphoresis. HEENT: Normocephalic atraumatic, no facial trauma, neck is supple. Lids/conjunctiva normal. Mucous membranes moist, nares normal, lips/teeth normal uvula midline without oral pharyngeal erythema, exudate or swelling TMs normal bilaterally. No lymphangitis/lymphedema. Chronic R eye strabismus exotropia CARDIAC: Regular rate and rhythm, S1+S2 heard. No murmurs, rubs, or gallops noted RESPIRATORY: respiratory effort normal, speaks in full sentences, no tripod position, no accessory muscle use. Lungs clear to auscultation without rhonchi, wheezes, rales ABDOMINAL: NBS. Soft, ND/NT. No evidence of fluid wave. No pulsatile masses on exam, rebound tenderness, Bernard sign or pain over Mcburney's point. MUSCLES/EXTREMITIES: No abnormal range of motion, no swelling. Full strength, able to lift all extremities against external pressure, endorses some numbness on R hemisphere extremities. DERM: Warm, pink and dry. No rashes, dermatoses, petechiae or lesions. NEUROLOGICAL: Speech is clear and appropriate. Normal level of consciousness. Gait and coordination are normal. 5/5 strength in all extremities. No focal neurological deficits, CN nerves intact. NIH: 4 due to blurry vision, mild sensory deficits in right lower leg and minor drift of r lower leg extremity. PSYCH: Normal mood and affect. Judgement/competence is appropriate Results: Labs 03/07/25 04:59 03/07/25 04:59 Labs: Short CBC 03/06/25 Range/Units 14:02 WBC 6.2 (3.6-11.0) Thou/mm3 Hgb 15.5 (12.0-16.0) g/dL Hct 43.7 (36.0-46.0) % Plt Count 238 (140-440) Thou/mm3 BMP 03/06/25 14:02 Sodium 142 Potassium 3.9 Chloride 105 Carbon Dioxide 26.4 BUN 10 Creatinine 0.7 Glucose 110 H Calcium 9.7 Cardiac Enzymes 03/06/25 Range/Units 14:02 Troponin I < 0.002 (0.0-0.045) ng/mL Liver Function 03/06/25 Range/Units 14:02 Total Bilirubin 0.5 (0.3-1.2) mg/dL AST 16 (0-34) U/L ALT 16 (10-49) U/L Alkaline Phosphatase 69 (46-116) U/L Albumin 4.5 (3.5-5.0) gm/dL Quality Measures Quality Measures none Medications Home Medications and Allergies Home Medications ?Medication ?Instructions ?Recorded ?Confirmed ?Type canagliflozin 100 mg tablet 100 mg PO QDAY 07/23/19 History (Invokana) aspirin 81 mg tablet,delayed 81 mg PO QDAY 01/29/21 History release Allergies Allergy/AdvReac Type Severity Reaction Status Date / Time Sulfa (Sulfonamide Allergy Severe Rash Verified 03/06/25 13:49 Antibiotics) Visit Medications Acetaminophen (Acetaminophen Supp 650 Mg Supp) 650 mg NC Q6HR PRN PRN Reason: Fever > 100.4 or pain 1-3 Stop: 04/05/25 16:55 Docusate Sodium (Docusate Sod 100 Mg Capsule) 100 mg PO QDAY PRN; Protocol PRN Reason: CONSTIPATION Stop: 04/05/25 16:55 Enoxaparin Sodium (Enoxaparin Sod Inj 40 Mg/0.4 Ml Syringe) 40 mg SC HS YOSELIN Stop: 03/20/25 20:59 Ondansetron HCl (Ondansetron Inj 2 Mg/Ml Inj 2 Ml) 4 mg IVP Q6H PRN; Protocol PRN Reason: NAUSEA OR VOMITING Stop: 04/05/25 16:55 Discontinued Medications Acetaminophen (Acetaminophen 325 Mg Tablet) 650 mg PO X1 ONE Stop: 03/06/25 15:16 Last Admin: 03/06/25 15:34 Dose: Not Given Lactated Ringer's (Lactated Ringers) 1,000 mls @ 999 mls/hr IV .Q1H1M ONE Stop: 03/06/25 16:15 Last Admin: 03/06/25 15:34 Dose: 999 mls/hr Assessment & Plan Plan 50-year-old female with past medical history significant for diabetes mellitus and migraines presenting to the Emergency Department with complaints of a headache for one week, worsening today. Associated with right leg numbness and blurred vision. Most likely due to chronic or hemiplegic migraine. Admitted for stroke r/o. NIH : 4 #Stroke r/o #Hx of hemiplegic migraine Patient presents with right sided weakness and numbness i/s/o right sided headache that is worsened by sound, and has a numbness/burning sensation along the right side of her face. There are no active lesions making Radha Carvalho, no unilateral asymmetry of her face making Joel's palsy unlikely as well. All imaging was unremarkable, pending MRI. In context of a similar presentation in the past the most likely etiology of a one sided headache associated with numbness and tingling with feelings of weakness would be hemiplegic migraine. Plan: - Neuro consulted, recs appreciated - MRI ordered: ____ - Physical therapy referral: - Swallow referral: - ECHO: - TSH: - Lipid panel: #Diabetes on insulin Plan: -Bedside glucose checks -ISS #Hematuria on UA Most likely due to menses Plan: -FUP urinary discomfort/menses schedule in AM Health Maintenance: Code status: Full DVT prophylaxis: Lovenox GI prophylaxis: Zofran Diet: NPO until NURSE COLLEGE Su: None Lines: PIV Supplemental O2: none Disposition: Tele Patient seen and reviewed with attending Dr. Montgomery and supervising resident Dr. Stringer. Note written by Dillon Vargas MD PGY-1
--- NOTE | 2025-03-06 17:34 | PD.TNEURO ---
Tele Neuro Consultation Consultation Date 03/06/25 Most Recent Vital Signs Last Vital Signs Temp 98.4 F 03/06/25 14:15 Pulse 92 03/06/25 17:23 Resp 16 03/06/25 17:23 BP 142/94 H 03/06/25 17:23 Pulse Ox 99 03/06/25 17:23 O2 Del Method Room Air 03/06/25 17:23 Laboratory-Coagulation Panel PT 10.3 Seconds (9.0-12.2) 03/06/25 14:02 INR 1.0 (0.9-1.3) 03/06/25 14:02 APTT 27.0 Seconds (22.0-36.0) 03/06/25 14:02 Consultation Narrative [facility] TeleNeurology Consult Services Patient Name:???Tala Shannon Date of :???1975 Identification Number:??? Date of Service:???03/06/2025 13:47:06 Diagnosis:?G44.59 - Other complicated headache syndrome Impression: ?This is a 50-year-old female presenting to the hospital with complaints of headache which seem to be related to weakness on one side. Not a candidate for IV thrombolytics as last known well greater than 4.5 hours. Not a candidate for intervention as no LVO. At this point, admit for further evaluation, though most likely migraine syndrome. Our recommendations are outlined below. Recommendations: ? Stroke/Telemetry Floor ? Neuro Checks (Q2) ? Bedside Swallow Eval ? DVT Prophylaxis ? IV Fluids, Normal Saline ? Head of Bed 30 Degrees ? Euglycemia and Avoid Hyperthermia (PRN Acetaminophen) ? Antihypertensives PRN if Blood pressure is greater than 220/120 or there is a concern for End organ damage/contraindications for permissive HTN. If blood pressure is greater than 220/120 give labetalol PO or IV or Vasotec IV with a goal of 15% reduction in BP during the first 24 hours. Sign Out: ? Discussed with Emergency Department Provider Advanced Imaging: CTA Head and Neck Completed. LVO:No Patient is not a candidate for KENZIE Metrics: Last Known Well: 03/06/2025 09:00:00 Dispatch Time: 03/06/2025 13:47:05 Arrival Time: 03/06/2025 13:37:00 Initial Response Time: 03/06/2025 13:55:25Symptoms: Headache and weakness. Initial patient interaction: 03/06/2025 13:59:20 NIHSS Assessment Completed: 03/06/2025 14:07:01Patient is not a candidate for Thrombolytic. Thrombolytic Medical Decision: 03/06/2025 14:07:11Patient was not deemed candidate for Thrombolytic because of following reasons: LKW outside 4.[address] Head: CT head unremarkable for acute infarction or hemorrhage per Radiology: Negative for acute hemorrhage, mass effect or midline shift Primary Provider Notified of Diagnostic Impression and Management Plan on: 03/06/2025 17:28:07 History of Present Illness:Patient is a 50 year old Female. Patient was brought by private transportation with symptoms of Headache and weakness. This is a 50-year-old female presenting to the hospital complaints of headache as well as right foot numbness and difficulty lifting it. She states has been going on now for a day or 2 and having trouble walking as well. Came to the hospital for further evaluation. Past Medical History: ?There is no history of Stroke Medications: No Anticoagulant use? No Antiplatelet use Reviewed EMR for current medications Allergies:? Reviewed Social History: Smoking: No Family History: There is no family history of premature cerebrovascular disease pertinent to this consultation ROS : 14 Points Review of Systems was performed and was negative except mentioned in HPI. Past Surgical History: There Is No Surgical History Contributory To Today?s Visit Examination: BP(153/87),?Pulse(104), 1A: Level of Consciousness - Alert; keenly responsive?+ 0 1B: Ask Month and Age - Both Questions Right?+ 0 1C: Blink Eyes & Squeeze Hands - Performs Both Tasks?+ 0 2: Test Horizontal Extraocular Movements - Normal?+ 0 3: Test Visual Aj - Partial Hemianopia?+ 1 4: Test Facial Palsy (Use Grimace if Obtunded) - Normal symmetry?+ 0 5A: Test Left Arm Motor Drift - No Drift for 10 Seconds?+ 0 5B: Test Right Arm Motor Drift - No Drift for 10 Seconds?+ 0 6A: Test Left Leg Motor Drift - Some Effort Against Richton?+ 2 6B: Test Right Leg Motor Drift - Drift, but doesn't hit bed?+ 1 7: Test Limb Ataxia (FNF/Heel-Alarcon) - No Ataxia?+ 0 8: Test Sensation - Mild-Moderate Loss: Less Sharp/More Dull?+ 1 9: Test Language/Aphasia - Normal; No aphasia?+ 0 10: Test Dysarthria - Normal?+ 0 11: Test Extinction/Inattention - No abnormality?+ 0 NIHSS Score:?5 NIHSS Free Text :?Right side of her face. Pre-Morbid Modified Rock Scale: 1 Points = No significant disability despite symptoms; able to carry out all usual duties and activities Spoke with :?Deb Magallon (ED Attending) This consult was conducted in real time using interactive audio and video technology. Patient was informed of the technology being used for this visit and agreed to proceed. Patient located in hospital and provider located at home/office setting. Patient is being evaluated for possible acute neurologic impairment and high probability of imminent or life-threatening deterioration. I spent total of 35 minutes providing care to this patient, including time for face to face visit via telemedicine, review of medical records, imaging studies and discussion of findings with providers, the patient and/or family. Dr Rigoberto Lyman [facility] For Inpatient follow-up with [facility] physician please call [facility] at . As we are not an outpatient service for any post hospital discharge needs please contact the hospital for assistance. If you have any questions for the [facility] physicians or need to reconsult for clinical or diagnostic changes please contact us via [facility] at . Signature :?Rigoberto Lyman
[2025-03-06 17:57] LABS: Collection Type, Urine Clean Catch
[2025-03-06 18:35] LABS: Bacteria,Urine 3+; Bilirubin,Urine Negative (Negative); Blood,Urine 3+ (Negative); Clarity,Urine Turbid (Clear/Hazy); Color,Urine Lt-Brown (Lt Yel-Yel); Glucose, Urine 3+ (Negative); Ketones,Urine Negative (Negative); Leukocyte Esterase,Urine Negative (Negative); Nitrite,Urine Negative (Negative); PH,Urine 6.5 (5.0-7.0); Protein,Urine Trace (Neg - Trace); RBC,Urine 580 /hpf (0-3); Specific Gravity,Urine 1.026 (1.001-1.035); Squamous Epithelial Cell,Urine 6 /hpf (0-5); Urobilinogen,Urine Negative mg/dL (0.0-1.0); WBC,Urine 5 /hpf (0-5)
[2025-03-06] MEDS: METOCLOPRAMIDE INJ 5 MG/ML VIAL 2 ML IVP (18:35)
[2025-03-06 18:43] LABS: Culture Indicated,Urine Yes
[2025-03-06 20:31] LABS: Amphetamine/Methamp Scrn,U Negative (Negative); Barbiturate Screen,Urine Negative (Negative); Benzodiazepines Screen,Urine Negative (Negative); Benzoylecgonine Screen, Ur Negative (Negative); Fentanyl Screen,Urine Negative (Negative); Opiate Screen,Urine Negative (Negative); THC Screen,Urine Negative (Negative)
--- NOTE | 2025-03-06 22:44 | PC.NURSE ---
Attempted to call report, told RN will call me back
[2025-03-06] MEDS: ENOXAPARIN SOD INJ 40 MG/0.4 ML SYRINGE SC (23:08)
[2025-03-07] VITALS (8 sets, daily range): BP systolic 94–142; BP diastolic 64–94; PULSE 69–96; RESP 18–99; TEMP 36–36.2; O2SAT 92–99; BMI 25.8
--- NOTE | 2025-03-07 | XR_ITS ---
Examinations: MRI Brain without intravenous contrast. MRA brain without intravenous contrast. MRA carotids without intravenous contrast 3-D vascular reconstructions Date and time of exam: March 07, 2025, 0740 hours INDICATIONS: CT stroke alert March 06, 2025, onset focal neurologic deficit headaches numbness in the right foot Technique: Multiple axial and sagittal images of the brain have been obtained MRA brain carotid images without contrast obtained, including 3-D postprocessing, vascular maximum intensity projection images Findings: Sellaturcica is not enlarged. The optic chiasm and infundibular stalk are not remarkable. Prepontine and interpeduncular cisterns are not enlarged. No localized enlargement of the medulla or lisandro. Fourth ventricle and cerebellar tonsils normal in position. Subacute hemorrhage is not seen. Fourth ventricle is midline. Mass in the cerebellopontine angle region is not evident. 7th and 8th nerve complexes exhibits symmetry. Globes are symmetrical with no retro-orbital mass. Increased white matter signal noted, again noted scattered punctate foci increased signal in the white matter Diffusion-weighted images demonstrate no focus of restricted diffusion Mass-effect upon the ventricular system is not identified. MRA carotid images no significant carotid stenoses. MRA brain images no large vessel occlusions Impression: Again noted is scattered punctate foci increased signal in the white matter, demyelinating disease pattern
--- NOTE | 2025-03-07 02:56 | PC.NURSE ---
Pt unsure on med dosages. Unable to complete med rec. stated he will bring home meds tomorrow.
[2025-03-07] MEDS: METOCLOPRAMIDE INJ 5 MG/ML VIAL 2 ML 10 MG IVP (04:53)
[2025-03-07 05:42] LABS: Basophils # (Auto) 0.1 Thou/mm3 (0.0-0.2); Basophils % (Auto) 1 % (0-2.5); Eosinophils # (Auto) 0.1 Thou/mm3 (0.0-0.5); Eosinophils % (Auto) 2 % (0-10); Hematocrit 41.6 % (36.0-46.0); Hemoglobin 14.3 g/dL (12.0-16.0); Immature Granulocytes Auto 0.01 Thou/mm3 (0.00-0.00); Lymphocytes # (Auto) 3.2 Thou/mm3 (1.0-4.8); Lymphocytes % (Auto) 45 % (10-50); Mean Corpuscular HGB Conc 34.4 g/dl (31.0-37.0); Mean Corpuscular Hemoglobin 30.6 pg (25.0-35.0); Mean Corpuscular Volume 89 fL (80-100); Monocytes # (Auto) 0.3 Thou/mm3 (0.0-0.8); Monocytes % (Auto) 4 % (0-12); Neutrophils # (Auto) 3.3 Thou/mm3 (1.8-7.7); Neutrophils % (Auto) 48 % (37-80); Nucleated Red Blood Cell # 0.00 Thou/mm3 (0.00-0.00); Nucleated Red Blood Cell % 0 /100 WBC (0); Platelet Count 267 Thou/mm3 (140-440); RDW Standard Deviation 38.4 fL (36.4-46.3); Red Blood Count 4.67 Miln/mm3 (4.00-5.20); White Blood Count 7.0 Thou/mm3 (3.6-11.0)
[2025-03-07 05:53] LABS: Glucose Estimated Average 151 mg/dL (80-131); Hemoglobin A1C 6.9 % Hgb (4.8-6.0)
[2025-03-07 06:15] LABS: Anion Gap 9 (7-16); BUN/Creatinine Ratio 11 Ratio (12-20); Blood Urea Nitrogen 8 mg/dL (9-23); Calcium 9.2 mg/dL (8.3-10.6); Carbon Dioxide 27.4 mMol/L (20.0-31.0); Cardiac Risk Estimate 4.9 RATIO (3.7-5.6); Chloride 107 mMol/L (98-107); Cholesterol 206 mg/dL (132-200); Creatinine (Component) 0.7 mg/dL (0.6-1.3); Estimated Creatinine Clearance 99.2 mL/min (>60); Glucose 77 mg/dL (74-106); HDL Cholesterol 42 mg/dL (40-60); LDL Cholesterol,Calculated 103 mg/dL (0-130); Magnesium 1.8 mg/dL (1.6-2.6); Osmolality,Calculated 282 (275-295); Phosphorous 3.9 mg/dL (2.4-5.1); Potassium 3.6 mMol/L (3.4-5.1); Sodium 143 mMol/L (136-145); Thyroid Stimulating Hormone 1.44 uIU/mL (0.55-4.78); Triglycerides 304 mg/dL (30-150); eGFR > 60 See Note
--- NOTE | 2025-03-07 07:47 | EKG_ITS ---
[facility] Test Date: 2025-03-07 Pat Name: SAM PIRES Department: Room: S261A Gender: Female Wind Tunnel Technician: REJI : 1975 Requested By: Dillon Vargas Order Number: [id number] Reading MD: Dillon Vargas Measurements Intervals [place] Rate: 89 P: 48 WV: 143 QRS: -24 QRSD: 86 T: 69 QT: 392 QTc: 478 Interpretive Statements SINUS RHYTHM BORDERLINE LEFT AXIS DEVIATION NONSPECIFIC T-WAVE ABNORMALITY Compared to ECG 03/06/2025 14:13:51 T-wave abnormality now present Sinus tachycardia no longer present /store/S0/[id number]/[id number].pdf
--- NOTE | 2025-03-07 08:59 | PC.SS ---
Patient Tala Shannon is a 50 Year old female admitted for Stroke R/O. SS made contact with patient in order to complete initial assessment and verify Demographic information. Patient lives with family at home. Patient's daughter, Lashaun Shannon is patient's surrogate decision maker, [phone]. Prior to admission patient did not utilize any source of DME to assist with ambulation. Patient was able to complete all ADL independently. [facility] of pharmacy [facility]. Patient's PCP is Osiris Villareal. Patient will return home once medically cleared. Discharge plan: Home Next of kin: DaughterLashaun
[2025-03-07] MEDS: POTASSIUM CHL 10 mEq IVPB 10 MEQ/100 ML BAG 100 MEQ IV (09:19)
[2025-03-07] MEDS: POTASSIUM CHL 10 mEq IVPB 10 MEQ/100 ML BAG 75 MEQ IV (10:32)
--- NOTE | 2025-03-07 10:46 | PD.RESHP ---
Documentation for date of: 03/07/25 Exam Vital Signs Temp Pulse Resp BP Pulse Ox O2 Del Method 97.2 F 90 18 117/82 98 Room Air 03/07/25 08:30 03/07/25 08:30 03/07/25 08:30 03/07/25 08:30 03/07/25 08:30 03/07/25 08:30 Results: Labs 03/07/25 04:59 03/07/25 04:59 Labs: Short CBC 03/06/25 03/07/25 Range/Units 14:02 04:59 WBC 6.2 7.0 (3.6-11.0) Thou/mm3 Hgb 15.5 14.3 (12.0-16.0) g/dL Hct 43.7 41.6 (36.0-46.0) % Plt Count 238 267 (140-440) Thou/mm3 BMP 03/06/25 03/07/25 14:02 04:59 Sodium 142 143 Potassium 3.9 3.6 Chloride 105 107 Carbon Dioxide 26.4 27.4 BUN 10 8 L Creatinine 0.7 0.7 Glucose 110 H 77 Calcium 9.7 9.2 Cardiac Enzymes 03/06/25 Range/Units 14:02 Troponin I < 0.002 (0.0-0.045) ng/mL Liver Function 03/06/25 Range/Units 14:02 Total Bilirubin 0.5 (0.3-1.2) mg/dL AST 16 (0-34) U/L ALT 16 (10-49) U/L Alkaline Phosphatase 69 (46-116) U/L Albumin 4.5 (3.5-5.0) gm/dL Urine 03/06/25 Range/Units 17:37 Urine Color Lt-Brown A (Lt Yel-Yel) Urine Clarity Turbid A (Clear/Hazy) Urine pH 6.5 (5.0-7.0) Ur Specific [place] 1.026 (1.001-1.035) Urine Protein Trace (Neg - Trace) Urine Glucose (UA) 3+ A (Negative) Quality Measures Quality Measures none Medications Home Medications and Allergies Home Medications ?Medication ?Instructions ?Recorded ?Confirmed ?Type canagliflozin 100 mg tablet 100 mg PO QDAY 07/23/19 07/23/19 History (Invokana) aspirin 81 mg tablet,delayed 81 mg PO QDAY 01/29/21 01/29/21 History release Allergies Allergy/AdvReac Type Severity Reaction Status Date / Time Sulfa (Sulfonamide Allergy Severe Rash Verified 03/06/25 13:49 Antibiotics) Visit Medications Acetaminophen (Acetaminophen Supp 650 Mg Supp) 650 mg CO Q6HR PRN; Protocol PRN Reason: Fever > 100.4 or pain 1-3 Stop: 04/05/25 16:55 Acetaminophen (Acetaminophen 325 Mg Tablet) 650 mg PO Q6HR PRN PRN Reason: Fever >100 or pain 1-3 Stop: 04/05/25 17:48 Atorvastatin Calcium (Atorvastatin Calcium 20 Mg Tablet) 40 mg PO HS [facility] Stop: 04/06/25 20:59 Dextrose (Dextrose 50%-Water Inj 50 Ml Syringe) 25 ml IV Q15MIN PRN PRN Reason: BG 50-70 responsive npo pt Stop: 04/05/25 19:18 Dextrose (Dextrose 50%-Water Inj 50 Ml Syringe) 50 ml IV Q15MIN PRN PRN Reason: BG <50 OR BG <70 & pt unresponsive Stop: 04/05/25 19:18 Docusate Sodium (Docusate Sod 100 Mg Capsule) 100 mg PO QDAY PRN; Protocol PRN Reason: CONSTIPATION Stop: 04/05/25 16:55 Enoxaparin Sodium (Enoxaparin Sod Inj 40 Mg/0.4 Ml Syringe) 40 mg SC [facility] Stop: 03/20/25 20:59 Last Admin: 03/06/25 23:08 Dose: 40 mg Glucagon (Glucagon Inj 1 Mg Vial) 1 mg IM Q15MIN PRN PRN Reason: BG <70, and no IV access Potassium Chloride (Kcl Ivpb) 10 meq in 100 mls @ 100 mls/hr IV Q1H YOSELIN Stop: 03/07/25 12:12 Last Admin: 03/07/25 10:32 Dose: 75 mls/hr Insulin Human Lispro (Insulin Lispro (Admelog) 1 Unit/0.01 Ml Unit) 0 unit SC AC [facility]; Protocol Stop: 04/06/25 07:29 Last Admin: 03/07/25 07:30 Dose: Not Given Labetalol HCl (Labetalol Inj 5 Mg/Ml Vial 20 Ml) 10 mg IVP Q10MIN PRN PRN Reason: SBP >220 or DBP >120 Metoclopramide HCl (Metoclopramide Inj 5 Mg/Ml Vial 2 Ml) 5 mg IVP Q8HR PRN; Protocol PRN Reason: Migraine Headache Stop: 04/05/25 21:59 Last Admin: 03/06/25 18:35 Dose: 5 mg Ondansetron HCl (Ondansetron Inj 2 Mg/Ml Inj 2 Ml) 4 mg IVP Q6H PRN; Protocol PRN Reason: NAUSEA OR VOMITING Stop: 04/05/25 16:55 Discontinued Medications Acetaminophen (Acetaminophen 325 Mg Tablet) 650 mg PO X1 ONE Stop: 03/06/25 15:16 Last Admin: 03/06/25 15:34 Dose: Not Given Diphenhydramine HCl (Diphenhydramine Inj 50 Mg/Ml Vial) 12.5 mg IVP X1 ONE Stop: 03/06/25 17:57 Last Admin: 03/06/25 18:59 Dose: Not Given Lactated Ringer's (Lactated Ringers) 1,000 mls @ 999 mls/hr IV .Q1H1M ONE Stop: 03/06/25 16:15 Last Infusion: 03/06/25 16:35 Dose: Infused Influenza Virus Vaccine Quadrival (Influenza Virus Quadrivalent 0.5 Ml Syringe) 0.5 ml IMi .ONCE ONE Stop: 03/07/25 01:20 Metoclopramide HCl (Metoclopramide Inj 5 Mg/Ml Vial 2 Ml) 10 mg IVP X1 ONE; Protocol Stop: 03/07/25 04:40 Last Admin: 03/07/25 04:53 Dose: 10 mg
--- NOTE | 2025-03-07 11:33 | PCS.ST ---
Swallow Evaluation completed. No dysphagia. Regular diet.
--- NOTE | 2025-03-07 11:50 | ESPR_ITS ---
<Statement entered by Michelle Montgomery MD - 03/13/25 12:10> I reviewed above note and agree with findings and plans. I have also personally examined the patient with medicine team and went over assessment and plan with medical team including buying intern and resident physician. <Statement entered by Bill Stringer MD - 03/07/25 18:35> I saw and examined patient personally and supervised PGY 1 resident, Dr. Vargas with formulating a management plan. I agree with the documentation with the exceptions as listed below. Patient is a 50-year-old female with past medical history significant for NIDDM type II, chronic migraines and history of hemiplegic migraine who presented with right-sided weakness and blurry vision. Patient will be admitted for stroke workup. Problem list: 1. TIA versus hemiplegic migraine episode 2. Chronic migraines 3. History of hemiplegic migraines 4. NIDDM type II MR brain and MRA with positive for scattered areas of punctate foci in white matter unchanged from her previous MRI 1 year ago. Worked with physiotherapy and CHIEF HOSPITAL ADMINISTRATOR today. Pending TTE. Patient's lipid panel was significant for triglycerides 331 and total cholesterol 206. Started on ASA 81mg po daily and Atorvastatin 40mg po HS. Patient was assessed by neurologist, Dr. Waldron who thinks patient most likely has hemiplegic migraines. Patient was started on amitriptyline 10mg po HS and also recommended to start on Ubrelvy as outpatient. Anticipate discharge within next 24-48 hours. Plan of care discussed with Attending Dr. Ulises Stringer MD PGY 2 Disclaimer: This note was dictated by speech recognition. Minor errors in floor associate may be present due to voice recognition software. Documentation for date of: 03/07/25 Subjective Subjective Interval history: Patient examined bedside, labs reviewed. MRI showed no significant changes Again noted is scattered punctate foci increased signal in the white matter, demyelinating disease pattern . On evaluation patient has improved dizziness, nausea, and denies vomiting. She has ongoing R face and hand burning sensation but also improved. She endorses her visual symptoms have resolved. NIH 1 Exam Vital Signs Temp Pulse Resp BP Pulse Ox O2 Del Method 97.2 F 90 18 117/82 98 Room Air 03/07/25 08:30 03/07/25 08:30 03/07/25 08:30 03/07/25 08:30 03/07/25 08:30 03/07/25 08:30 Narrative Exam GENERAL APPEARANCE: AOx3. NAD, activity normal for age, well developed/ well nourished, no cyanosis, pallor, or diaphoresis. HEENT: Normocephalic atraumatic, no facial trauma, neck is supple. Lids/conjunctiva normal. Mucous membranes moist, nares normal, lips/teeth normal uvula midline without oral pharyngeal erythema, exudate or swelling TMs normal bilaterally. No lymphangitis/lymphedema. Chronic R eye strabismus exotropia CARDIAC: Regular rate and rhythm, S1+S2 heard. No murmurs, rubs, or gallops noted RESPIRATORY: respiratory effort normal, speaks in full sentences, no tripod position, no accessory muscle use. Lungs clear to auscultation without rhonchi, wheezes, rales ABDOMINAL: NBS. Soft, ND/NT. No evidence of fluid wave. No pulsatile masses on exam, rebound tenderness, Bernard sign or pain over Mcburney's point. MUSCLES/EXTREMITIES: No abnormal range of motion, no swelling. Full strength, able to lift all extremities against external pressure, endorses some numbness on R lower extremities. DERM: Warm, pink and dry. No rashes, dermatoses, petechiae or lesions. NEUROLOGICAL: Speech is clear and appropriate. Normal level of consciousness. Gait and coordination are normal. 5/5 strength in all extremities. No focal neurological deficits, CN nerves intact. NIH: 1 mild sensory deficits to right leg. PSYCH: Normal mood and affect. Judgement/competence is appropriate Objective Labs 03/07/25 04:59 03/07/25 04:59 Labs: Laboratory Results - last 24 hr 03/06/25 03/06/25 03/07/25 14:02 17:37 04:59 WBC 6.2 7.0 RBC 5.01 4.67 Hgb 15.5 14.3 Hct 43.7 41.6 MCV 87 89 MCH 30.9 30.6 MCHC 35.5 34.4 RDW Std Deviation 37.3 38.4 Plt Count 238 267 Neut % (Auto) 45 48 Lymph % (Auto) 48 45 Stanton % (Auto) 4 4 Eos % (Auto) 2 2 Baso % (Auto) 1 1 Neut # (Auto) 2.8 3.3 Lymph # (Auto) 3.0 3.2 Stanton # (Auto) 0.3 0.3 Eos # (Auto) 0.2 0.1 Baso # (Auto) 0.0 0.1 Immature Gran # (Auto) 0.02 H 0.01 H Absolute Nucleated RBC 0.00 0.00 Immature Gran % 0 0 Nucleated RBC % 0 0 PT 10.3 INR 1.0 APTT 27.0 Sodium 142 143 Potassium 3.9 3.6 Chloride 105 107 Carbon Dioxide 26.4 27.4 Anion Gap 11 9 BUN 10 8 L Creatinine 0.7 0.7 Estim Creat Clear Calc 99.2 99.2 eGFR > 60 > 60 BUN/Creatinine Ratio 14 11 L Glucose [address] Glu mg/dL 151 H Hemoglobin A1c 6.9 H Calculated Osmolality 283 282 Calcium 9.7 9.2 Corrected Calcium 9.7 Phosphorus 3.9 Magnesium 1.9 1.8 Total Bilirubin 0.5 AST 16 ALT 16 Alkaline Phosphatase 69 Troponin I < 0.002 Total Protein 7.0 Albumin 4.5 Globulin 2.5 Albumin/Globulin Ratio 1.8 Triglycerides 304 H Cholesterol 206 H LDL Cholesterol, Calc 103 HDL Cholesterol 42 Cholesterol/HDL Ratio 4.9 TSH 1.44 Ur Collection Type Clean Catch Urine Color Lt-Brown A Urine Clarity Turbid A Urine pH 6.5 Ur Specific [place] 1.026 Urine Protein Trace Urine Glucose (UA) 3+ A Urine Ketones Negative Urine Blood 3+ A Urine Nitrite Negative Urine Bilirubin Negative Urine Urobilinogen (Auto) Negative Ur Leukocyte Esterase Negative Urine RBC 580 H Urine WBC 5 Ur Squamous Epith Cells 6 H Urine Bacteria 3+ A Ur Culture Indicated? Yes Urine Opiates Screen Negative Urine Fentanyl Screen Negative Ur Barbiturates Screen Negative U Amphetamin/Meth Scrn Negative U Benzodiazepines Scrn Negative U Cocaine Metab Screen Negative U Marijuana (THC) Screen Negative HCG (Qual) Negative Quality Measures Quality Measures none Assessment & Plan Assessment Current Active Medications: Generic Name Dose Route Start Last Admin Trade Name Freq PRN Reason Stop Dose Admin Acetaminophen 650 mg 03/06/25 16:56 Acetaminophen Supp 650 Mg Supp LA 04/05/25 16:55 Q6HR PRN Fever > 100.4 or pain 1-3 Protocol Acetaminophen 650 mg 03/06/25 17:49 Acetaminophen 325 Mg Tablet PO 04/05/25 17:48 Q6HR PRN Fever >100 or pain 1-3 Aspirin 81 mg 10/06/25 11:45 Aspirin Ec 81 Mg Tabec PO 04/06/25 11:44 QDAY YOSELIN Atorvastatin Calcium 40 mg 03/07/25 21:00 Atorvastatin Calcium 20 Mg Tablet PO 04/06/25 20:59 HS YOSELIN Dextrose 25 ml 03/06/25 19:19 Dextrose 50%-Water Inj 50 Ml Syringe IV 04/05/25 19:18 Q15MIN PRN BG 50-70 responsive npo pt Dextrose 50 ml 03/06/25 19:19 Dextrose 50%-Water Inj 50 Ml Syringe IV 04/05/25 19:18 Q15MIN PRN BG <50 OR BG <70 & pt unresponsive Docusate Sodium 100 mg 03/06/25 16:56 Docusate Sod 100 Mg Capsule PO 04/05/25 16:55 QDAY PRN CONSTIPATION Protocol Enoxaparin Sodium 40 mg 03/06/25 21:00 03/06/25 23:08 Enoxaparin Sod Inj 40 Mg/0.4 Ml Syringe SC 03/20/25 20:59 40 mg HS YOSELIN Administration Glucagon 1 mg 03/06/25 19:19 Glucagon Inj 1 Mg Vial IM Q15MIN PRN BG <70, and no IV access Potassium Chloride 10 meq in 100 mls @ 100 mls/hr 03/07/25 08:13 03/07/25 11:22 Kcl Ivpb IV 03/07/25 12:12 0 mls/hr Q1H YOSELIN Infusion Insulin Human Lispro 0 unit 03/07/25 07:30 03/07/25 07:30 Insulin Lispro (Admelog) 1 Unit/0.01 Ml Unit SC 04/06/25 07:29 Not Given AC [facility] Protocol Labetalol HCl 10 mg 03/06/25 17:45 Labetalol Inj 5 Mg/Ml Vial 20 Ml IVP Q10MIN PRN SBP >220 or DBP >120 Metoclopramide HCl 5 mg 03/06/25 18:14 03/06/25 18:35 Metoclopramide Inj 5 Mg/Ml Vial 2 Ml IVP 04/05/25 21:59 5 mg Q8HR PRN Administration Migraine Headache Protocol Ondansetron HCl 4 mg 03/06/25 16:56 Ondansetron Inj 2 Mg/Ml Inj 2 Ml IVP 04/05/25 16:55 Q6H PRN NAUSEA OR VOMITING Protocol Plan 50-year-old female with past medical history significant for diabetes mellitus and migraines presenting to the Emergency Department with complaints of a headache for one week, worsening today. Associated with right leg numbness and blurred vision. Most likely due to chronic or hemiplegic migraine. Admitted for stroke r/o. NIH : 4 --> 1(03/07) #Right sided weakness - resolved #Likely TIA #Hx of hemiplegic migraine Patient presents with right sided weakness and numbness i/s/o right sided headache that is worsened by sound, and has a numbness/burning sensation along the right side of her face. There are no active lesions making Shelly Carvalho, no unilateral asymmetry of her face making Joel's palsy unlikely as well. All imaging was unremarkable. Plan: - Neuro consulted, recs appreciated:___ - MRI ordered: Again noted is scattered punctate foci increased signal in the white matter, demyelinating disease pattern - Physical therapy referral: Recs outpt PT, patient prefers Home health. Able to ambulate. - Swallow referral: Passed - ECHO: - TSH: 1.44 - Aspirin 81mg #Diabetes on insulin Plan: -Bedside glucose checks -ISS #Hypertriglyceridemia #Hypercholesterolemia Triglycerides: 304, cholesterol: 206 Plan: -Atorvastatin 40mg PO HS #Hematuria on UA Most likely due to menses Plan: -FUP urinary discomfort/menses schedule in AM Health Maintenance: Code status: Full DVT prophylaxis: Lovenox GI prophylaxis: Zofran Diet: Carb consistent Su: None Lines: PIV Supplemental O2: none Disposition: Tele Patient seen and reviewed with attending Dr. Montgomery and supervising resident Dr. Stringer. Note written by Dillon Vargas MD PGY-1
--- NOTE | 2025-03-07 12:19 | PC.SS ---
SS follow up note; Patient is pending MRI and Echo. Patient will discharge home when medically cleared.
--- NOTE | 2025-03-07 15:08 | PD.RESCONSUL ---
HPI Data of Consult Requesting Physician: Michelle Montgomery MD Admitting Provider: Michelle Montgomery MD Attending Provider: Michelle Montgomery MD Primary Care Provider: Osiris Villareal PA-C Consult Narrative Reason for consult: migraine, stroke workup History of present illness: Tala Shannon is 50 yr female with PMH of diabetes mellitus and migraines (hemiplegic?) presenting to ED 03/07 due to slow onset of worsening migraine and blurry vision. Patient stated that about a week ago the migraine started and peaked and discomfort about 2 days ago. Also associated with nausea, 1 episode of vomiting, blurry vision. Patient states that when these episodes occur she experiences right lower extremity weakness. She is unable to move her right lower leg. Patient does not experience these episodes often. Approximately once every 3 months. She follows with a PCP who had started her on Nurtec which did not help symptoms. Otherwise patient does not take anything to relieve the symptoms and states that she previously had an episode like this in 2023 that resulted in this weakness and blurry vision. She endorses light and noise sensitivity. Since admission, pain has slightly improved, blurry vision has resolved, right lower extremity weakness is still present on physical exam. She denies any smoking, drinking, or caffeine intake. Patient has not been scheduled to see neurologist due to insurance issues. Stated that her visit has finally been approved for coming up in 2025. Neurology was consulted for migraines, blurry vision, lower extremity weakness. Stroke alert was initiated in the ED, NIHSS score was 5, CT head negative for acute hemorrhage, CTA negative for any stenoses or LVO. MRI showed punctate foci but no acute ischemic changes. A1c on labs 6.9, triglyceride 300, cholesterol 206, LDL 103. Patient examined at bedside. Exhibits good movement and bilateral upper extremities and left lower extremity. No movement on right lower extremity, withdraws to pain stimuli. Start patient on amitriptyline 10 mg daily and Ubrelvy for migraine treatment. Low suspicion for TIA is her weakness is still present and associated with onset of the headaches. cc:: cc: Michelle Montgomery MD Review of Systems Review of Systems Systems Reviewed: All systems reviewed, normal except as documented Exam Vital Signs Temp Pulse Resp BP Pulse Ox O2 Del Method 97.2 F 90 18 142/94 H 97 Room Air 03/07/25 12:00 03/07/25 12:00 03/07/25 12:00 03/07/25 12:00 03/07/25 12:00 03/07/25 12:00 Narrative Exam General: Middle age female, No acute distress, cooperative, covering eyes from natural light HEENT: NCAT, No JVD noted. Mucosa moist. Pupils are equal and reactive to light bilaterally Cardiovascular: Normal S1 and S2. Regular rate and rhythm. Respiratory: Lungs are clear to auscultation bilaterally. No wheezing or crackles heard. Abdomen: Soft, nontender, not distended, normal bowel sounds. Skin: Warm to touch, dry, no rashes noted Musculoskeletal: No gross injuries. Able to move all extremities except RLE extremity. No pitting edema Neuro: Alert and oriented x3. CN grossly intact. Speech and language: Normal with no dysarthria or dysphasia. Motor system: Tone and bulk: Normal: Strength: 5 out of 5 in three extremities. No movement in RLE. No pronator drift noted. Deep tendon reflexes: 2+ bilaterally symmetrical. Plantar reflex: Downgoing bilaterally. Sensory system: Intact to all modalities of sensation bilaterally. Coordination: Intact to [id number]-qsdg-hxfgm and jcxa-sttf-yfnp test bilaterally. No ataxia, no dysmetria, or dysdiadochokinesia noted. No intention tremors noted. Gait: Not tested. No signs of meningeal irritation noted. Psych: Normal affect and mood Results Labs 03/08/25 05:25 03/08/25 05:25 Labs: Short CBC 03/06/25 03/07/25 Range/Units 14:02 04:59 WBC 6.2 7.0 (3.6-11.0) Thou/mm3 Hgb 15.5 14.3 (12.0-16.0) g/dL Hct 43.7 41.6 (36.0-46.0) % Plt Count 238 267 (140-440) Thou/mm3 BMP 03/07/25 04:59 Sodium 143 Potassium 3.6 Chloride 107 Carbon Dioxide 27.4 BUN 8 L Creatinine 0.7 Glucose 77 Calcium 9.2 Urine 03/06/25 Range/Units 17:37 Urine Color Lt-Brown A (Lt Yel-Yel) Urine Clarity Turbid A (Clear/Hazy) Urine pH 6.5 (5.0-7.0) Ur Specific Terril 1.026 (1.001-1.035) Urine Protein Trace (Neg - Trace) Urine Glucose (UA) 3+ A (Negative) Quality Measures Quality Measures none Medications Home Medications and Allergies Home Medications ?Medication ?Instructions ?Recorded ?Confirmed ?Type canagliflozin 100 mg tablet 100 mg PO QDAY 07/23/19 07/23/19 History (Invokana) aspirin 81 mg tablet,delayed 81 mg PO QDAY 01/29/21 01/29/21 History release Allergies Allergy/AdvReac Type Severity Reaction Status Date / Time Sulfa (Sulfonamide Allergy Severe Rash Verified 03/06/25 13:49 Antibiotics) Visit Medications Acetaminophen (Acetaminophen Supp 650 Mg Supp) 650 mg MD Q6HR PRN; Protocol PRN Reason: Fever > 100.4 or pain 1-3 Stop: 04/05/25 16:55 Acetaminophen (Acetaminophen 325 Mg Tablet) 650 mg PO Q6HR PRN PRN Reason: Fever >100 or pain 1-3 Stop: 04/05/25 17:48 Aspirin (Aspirin Ec 81 Mg Tabec) 81 mg PO QDAY YOSELIN Stop: 04/06/25 11:44 Atorvastatin Calcium (Atorvastatin Calcium 20 Mg Tablet) 40 mg PO HS [facility] Stop: 04/06/25 20:59 Dextrose (Dextrose 50%-Water Inj 50 Ml Syringe) 25 ml IV Q15MIN PRN PRN Reason: BG 50-70 responsive npo pt Stop: 04/05/25 19:18 Dextrose (Dextrose 50%-Water Inj 50 Ml Syringe) 50 ml IV Q15MIN PRN PRN Reason: BG <50 OR BG <70 & pt unresponsive Stop: 04/05/25 19:18 Docusate Sodium (Docusate Sod 100 Mg Capsule) 100 mg PO QDAY PRN; Protocol PRN Reason: CONSTIPATION Stop: 04/05/25 16:55 Enoxaparin Sodium (Enoxaparin Sod Inj 40 Mg/0.4 Ml Syringe) 40 mg SC YOSELIN Stop: 03/20/25 20:59 Last Admin: 03/06/25 23:08 Dose: 40 mg Glucagon (Glucagon Inj 1 Mg Vial) 1 mg IM Q15MIN PRN PRN Reason: BG <70, and no IV access Insulin Human Lispro (Insulin Lispro (Admelog) 1 Unit/0.01 Ml Unit) 0 unit SC [facility]; Protocol Stop: 04/06/25 07:29 Last Admin: 03/07/25 07:30 Dose: Not Given Labetalol HCl (Labetalol Inj 5 Mg/Ml Vial 20 Ml) 10 mg IVP Q10MIN PRN PRN Reason: SBP >220 or DBP >120 Metoclopramide HCl (Metoclopramide Inj 5 Mg/Ml Vial 2 Ml) 5 mg IVP Q8HR PRN; Protocol PRN Reason: Migraine Headache Stop: 04/05/25 21:59 Last Admin: 03/06/25 18:35 Dose: 5 mg Ondansetron HCl (Ondansetron Inj 2 Mg/Ml Inj 2 Ml) 4 mg IVP Q6H PRN; Protocol PRN Reason: NAUSEA OR VOMITING Stop: 04/05/25 16:55 Discontinued Medications Acetaminophen (Acetaminophen 325 Mg Tablet) 650 mg PO X1 ONE Stop: 03/06/25 15:16 Last Admin: 03/06/25 15:34 Dose: Not Given Diphenhydramine HCl (Diphenhydramine Inj 50 Mg/Ml Vial) 12.5 mg IVP X1 ONE Stop: 03/06/25 17:57 Last Admin: 03/06/25 18:59 Dose: Not Given Lactated Ringer's (Lactated Ringers) 1,000 mls @ 999 mls/hr IV .Q1H1M ONE Stop: 03/06/25 16:15 Last Infusion: 03/06/25 16:35 Dose: Infused Potassium Chloride (Kcl Ivpb) 10 meq in 100 mls @ 100 mls/hr IV Q1H YOSELIN Stop: 03/07/25 12:12 Last Infusion: 03/07/25 11:22 Dose: 0 mls/hr Influenza Virus Vaccine Quadrival (Influenza Virus Quadrivalent 0.5 Ml Syringe) 0.5 ml IMi .ONCE ONE Stop: 03/07/25 01:20 Metoclopramide HCl (Metoclopramide Inj 5 Mg/Ml Vial 2 Ml) 10 mg IVP X1 ONE; Protocol Stop: 03/07/25 04:40 Last Admin: 03/07/25 04:53 Dose: 10 mg Potassium Chloride (Potassium Chloride 20 Meq Tabcr) 40 meq PO X1 ONE Stop: 03/07/25 11:56 Assessment & Plan Plan Tala Shannon is 50 yr female with PMH of diabetes mellitus and migraines (hemiplegic?) presenting to ED 03/07 due to slow onset of worsening migraine and blurry vision. Patient stated that about a week ago the migraine started and peaked and discomfort about 2 days ago. Also associated with nausea, 1 episode of vomiting, blurry vision. Patient admitted for stroke workup. #RLE weakness #Hemiplegic Migraine Possible recurrent episode of hemiplegic migraine. Similar symptoms in the past that resulted in right lower extremity weakness. Patient usually requires a walker for assistance. Weakness resolves as the head migraine resolves as well. No evidence of stroke on MRI. Less liekly TIA she still exhibits motor symptoms. NIHSS score [address] head negative for acute hemorrhage, CTA negative for any stenoses or LVO. MRI showed punctate foci but no acute ischemic changes. A1c on labs 6.9, triglyceride 300, cholesterol 206, LDL 103. -echo pending -stop aspirin 81 mg daily -start amitriptyline 10 mg daily -Ubrelvy -Avoid triptans and ergot derivatives as vasoconstrictive effect can worsen ischemia -Avoid ibuprofen as it may cause rebound headache -supportive management # Akv-etaflbq-sfcffibol type 2 diabetes On admission initial glucose 110. Last A1c 6.7 on 01/23. Patient takes canagliflozin 100 mg daily for diabetes at home. A1c on this admission 6.9 -Held home medications -Bedside blood glucose checks ACHS -Insulin lispro sliding scale _, adjusted as necessary -Carb consistent low diet Primary care team to manage above conditions and ongoing care needs. The patient's management plan was discussed with my attending physician Dr. Waldron. Antonia Ann, PGY-2 Attending Provider Attestation/Addendum I personally have seen and examined the patient at the bedside and I agree with resident's findings, assessment and plan of care. Patient presenting symptoms are most consistent with hemiplegic migraine. As it is more frequent, she needs to be on amitriptyline for prophylaxis and take aspirin and statin for preventing TIA and try Ubrelvy as needed for abortive therapy at 100 mg. She is advised to follow-up with neurology as an outpatient. Advised lifestyle changes with diet and exercise as well.
[2025-03-07] MEDS: ACETAMINOPHEN 325 MG TABLET 650 MG PO (15:50)
[2025-03-07] MEDS: ASPIRIN EC 81 MG TABEC PO (15:56)
[2025-03-07] MEDS: ATORVASTATIN CALCIUM 20 MG TABLET 40 MG PO (20:08)
[2025-03-07] MEDS: ENOXAPARIN SOD INJ 40 MG/0.4 ML SYRINGE SC (20:09)
[2025-03-07] MEDS: AMITRIPTYLINE HCL 25 MG TABLET 12.5 MG PO (20:09)
[2025-03-08] VITALS: BP 93/68; PULSE 81; PULSE 82; RESP 12; TEMP 36.1; O2SAT 97
[2025-03-08 04:00] VITALS: BP 104/73; PULSE 84; PULSE 87; RESP 12; TEMP 36.1; O2SAT 98
[2025-03-08 05:40] LABS: Basophils # (Auto) 0.0 Thou/mm3 (0.0-0.2); Basophils % (Auto) 1 % (0-2.5); Eosinophils # (Auto) 0.2 Thou/mm3 (0.0-0.5); Eosinophils % (Auto) 3 % (0-10); Hematocrit 41.4 % (36.0-46.0); Hemoglobin 14.2 g/dL (12.0-16.0); Immature Granulocytes Auto 0.01 Thou/mm3 (0.00-0.00); Lymphocytes # (Auto) 2.7 Thou/mm3 (1.0-4.8); Lymphocytes % (Auto) 49 % (10-50); Mean Corpuscular HGB Conc 34.3 g/dl (31.0-37.0); Mean Corpuscular Hemoglobin 30.6 pg (25.0-35.0); Mean Corpuscular Volume 89 fL (80-100); Monocytes # (Auto) 0.3 Thou/mm3 (0.0-0.8); Monocytes % (Auto) 6 % (0-12); Neutrophils # (Auto) 2.2 Thou/mm3 (1.8-7.7); Neutrophils % (Auto) 41 % (37-80); Nucleated Red Blood Cell # 0.00 Thou/mm3 (0.00-0.00); Nucleated Red Blood Cell % 0 /100 WBC (0); Platelet Count 225 Thou/mm3 (140-440); RDW Standard Deviation 38.5 fL (36.4-46.3); Red Blood Count 4.64 Miln/mm3 (4.00-5.20); White Blood Count 5.4 Thou/mm3 (3.6-11.0)
[2025-03-08 06:07] LABS: Anion Gap 7 (7-16); BUN/Creatinine Ratio 14 Ratio (12-20); Blood Urea Nitrogen 10 mg/dL (9-23); Calcium 9.1 mg/dL (8.3-10.6); Carbon Dioxide 27.5 mMol/L (20.0-31.0); Chloride 107 mMol/L (98-107); Creatinine (Component) 0.7 mg/dL (0.6-1.3); Estimated Creatinine Clearance 99.2 mL/min (>60); Glucose 128 mg/dL (74-106); Magnesium 1.7 mg/dL (1.6-2.6); Osmolality,Calculated 282 (275-295); Phosphorous 3.6 mg/dL (2.4-5.1); Potassium 4.4 mMol/L (3.4-5.1); Sodium 141 mMol/L (136-145); eGFR > 60 See Note
[2025-03-08] MEDS: ACETAMINOPHEN 325 MG TABLET 650 MG PO (07:17)
[2025-03-08] MEDS: METOCLOPRAMIDE INJ 5 MG/ML VIAL 2 ML IVP (07:17)
[2025-03-08] MEDS: INSULIN LISPRO (AdmeLOG) 1 UNIT/0.01 ML UNIT SC (07:26)
[2025-03-08 08:00] VITALS: BP 108/80; PULSE 84; PULSE 86; RESP 14; TEMP 36.1; O2SAT 95
[2025-03-08] MEDS: ASPIRIN EC 81 MG TABEC PO (09:07)
--- NOTE | 2025-03-08 10:43 | ESDS_ITS ---
<Statement entered by Michelle Montgomery MD - 03/13/25 12:11> I reviewed above note and agree with findings and plans. I have also personally examined the patient with medicine team and went over assessment and plan with medical team including international affairs vice president and resident physician. <Statement entered by Bill Stringer MD - 03/08/25 16:47> I saw and examined patient personally and supervised PGY 1 resident, Dr. Vargas with formulating a management plan. I agree with the documentation with the exceptions as listed below. Patient is a 50-year-old female with past medical history significant for NIDDM type II, chronic migraines and history of hemiplegic migraine who presented with right-sided weakness and blurry vision. Patient was admitted for stroke workup. CTA and CT brain were negative for any acute changes. MRI brain and MRA were consistent with focal white matter changes, unchanged from her MRI 2023. Patient was again diagnosed with hemiplegic migraines by neurology and her weakness and blurred vision improved during hospitalization. She will be discharged on high-dose atorvastatin, amitriptyline and Ubrelvy for migraine abortive therapy. Patient is clinically stable for discharge to home. Discharge diagnoses: 1. TIA versus hemiplegic migraine episode - resolved 2. Chronic migraines 3. History of hemiplegic migraines 4. NIDDM type II 5. Hyperlipidemia Plan of care discussed with Attending Dr. Ulises Stringer MD PGY 2 Disclaimer: This note was dictated by speech recognition. Minor errors in foot miter operator may be present due to voice recognition software. Planned Discharge Date 03/08/25 DS: Providers Provider Date of admission: 03/06/25 16:56 Primary care physician: Osiris Villareal PA-C Admitting Provider: Michelle Montgomery MD Attending Provider on Admission: Michelle Montgomery MD Consults: 03/06/25 13:52 Consult to Neurology / Tele-Neurology Routine Comment: Consulting Provider: [facility] 03/06/25 17:04 Consult to Neurology / Tele-Neurology Stat Comment: Stroke r/o hx of hemiplegic migraines Consulting Provider: Alex Waldron 03/06/25 17:06 Referral - ORDER TAKERS SUPERVISOR Bar Waiter/Waitress Routine Comment: Referral Physical Therapy Routine Comment: Physician Instructions: 03/07/25 11:25 Referral Speech Therapy Urgent Comment: Attending Provider on DC: Michelle Montgomery MD Discharging Provider: Michelle Montgomery MD DS: Diagnosis Problem List Completed Was Problem List Reviewed/Reconciled?: Yes Hospital Course Hospital Course Hospital course: 50-year-old female with past medical history significant for diabetes mellitus and migraines presenting to the Emergency Department with complaints of a headache for one week, worsening today. Associated with right leg numbness and blurred vision. Admitted for stroke rule out. In the ED patient presented with vitals: HR 107 RR 18 BP 158/86 O2 99%. Labs were noncontibutory, UA showed hematuria, imaging (CXR CT head CTA) were all unremarkable. Given 1 L LR and 325mg Acetominophen. Neuro was consulted and recommended MRI for stroke r/o. In the hospital neurology was consulted and recommended ubrelvy and amitryptyline. TSH workup was noncontributory, MRI was static. Patient had resolution of a majority of her symptoms other than her migraine headache and facial burning and minimal numbness to her leg which is most likely related to her sciatic. She is able to ambulate, safe to discharge with home health. Discharge Instructions: -NEW Medication Amitriptyline 10 mg once daily for your headaches -Aspirin 81 mg once a day and Atorvastatin 40 mg at night - Please follow up with Neurologist to start Ubrelvy for your migraines -Please follow up with your neurologist, Dr. Waldron, within 1-2 weeks. -Please follow up with your primary care provider within one week of discharge -If your symptoms worsen,please seek immediate medical attention and return to your nearest emergency room -If you do not have a primary care provider, you may follow up at the [facility] at [facility] [address], [place] [address], #Right sided weakness - resolved #Likely TIA #Hx of hemiplegic migraine #Diabetes on insulin #Hypertriglyceridemia #Hypercholesterolemia #Hematuria on UA Patient's plan and care discussed with my attending, Dr. Montgomery, and supervising resident MD Dillon Kirkland MD Internal Medicine PGY-1 Status at Discharge Functional status at discharge: independent ambulation Overall status at discharge: patient is progressing back to baseline Time Spent with Patient Time attestation: Total time spent providing and/or coordinating discharge services: Time spent: Greater than 30 minutes Exam Vital Signs Temp Pulse Resp BP Pulse Ox O2 Del Method 96.9 F 84 14 108/80 95 Room Air 03/08/25 08:00 03/08/25 08:00 03/08/25 08:00 03/08/25 08:00 03/08/25 08:00 03/08/25 08:00 Narrative Exam GENERAL APPEARANCE: AOx3. NAD, activity normal for age, well developed/ well no urished, no cyanosis, pallor, or diaphoresis. HEENT: Normocephalic atraumatic, no facial trauma, neck is supple. Lids/conjunctiva normal. Mucous membranes moist, nares normal, lips/teeth normal uvula midline without oral pharyngeal erythema, exudate or swelling TMs normal bilaterally. No lymphangitis/lymphedema. Chronic R eye strabismus exotropia CARDIAC: Regular rate and rhythm, S1+S2 heard. No murmurs, rubs, or gallops noted RESPIRATORY: respiratory effort normal, speaks in full sentences, no tripod position, no accessory muscle use. Lungs clear to auscultation without rhonchi, wheezes, rales ABDOMINAL: NBS. Soft, ND/NT. No evidence of fluid wave. No pulsatile masses on exam, rebound tenderness, Bernard sign or pain over Mcburney's point. MUSCLES/EXTREMITIES: No abnormal range of motion, no swelling. Full strength, able to lift all extremities against external pressure, endorses some numbness on R lower extremities. DERM: Warm, pink and dry. No rashes, dermatoses, petechiae or lesions. NEUROLOGICAL: Speech is clear and appropriate. Normal level of consciousness. Gait and coordination are normal. 5/5 strength in all extremities. No focal neurological deficits, CN nerves intact. NIH: 1 mild sensory deficits to right leg. PSYCH: Normal mood and affect. Judgement/competence is appropriate Discharge Plan Plan Patient Disposition: HOME (Self Care) Patient condition on transfer: Stable Care Plan Goals: Instructions: -NEW Medication Amitriptyline 10 mg once daily for your headaches -Aspirin 81 mg once a day and Atorvastatin 40 mg at night - Please follow up with Neurologist to start Ubrelvy for your migraines -Please follow up with your neurologist, Dr. Waldron, within 1-2 weeks. -Please follow up with your primary care provider within one week of discharge -If your symptoms worsen,please seek immediate medical attention and return to your nearest emergency room -If you do not have a primary care provider, you may follow up at the [facility] at [address] [place] [address] [address], [place] [address], Prescriptions/Referrals Prescriptions/Med Rec: New atorvastatin [Lipitor] 40 mg tablet 40 mg PO QPM 30 Days Qty: 30 0RF amitriptyline 10 mg tablet 10 mg PO QDAY 30 Days Qty: 30 0RF Ubrelvy 50 mg tablet 50 mg PO .x1 MDD 1 per day PRN (Reason: For severe migraines) Qty: 7 0RF omeprazole 20 mg capsule,delayed release(DR/EC) 20 mg PO QDAY 14 Days Qty: 14 0RF Continued Invokana 100 mg Tablet 100 mg PO QDAY aspirin 81 mg Tablet,Delayed Release (Dr/Ec) 81 mg PO QDAY Excedrin Tension Headache 500-65 mg tablet 1 tab PO Q6H PRN (Reason: pain) Qty: 30 0RF tramadol 50 mg tablet 50 mg PO BID PRN (Reason: pain) Qty: 6 0RF Discontinued ibuprofen 600 mg tablet 600 mg PO Q6H Qty: 30 0RF Referrals: Osiris Villareal PA-C [Primary Care Provider] Alex Waldron MD [Physician, Neurology] Patient/Caregiver Discharge Instructions Education Materials: Headache Migraine Meds Lifestyle, ED TIA: Transient Ischemic Attack Print Language: Nigerian Stand Alone Forms: [facility] Award Info., Patient Portal Info Letter Discharge Order Discharge Orders: Discharge (Routine); Ordered 03/08/25 Ordered By: Bill Stringer Quality Discharge Quality Measures VTE prophylaxis
[2025-03-08 11:45] VITALS: BP 107/72; PULSE 88; RESP 23; TEMP 36.2; O2SAT 94
--- NOTE | 2025-03-26 08:29 | PD.VPROG1 ---
Telemedicine visit statement This visit was conducted with the use of interactive audio and video telecommunications system that permits real time communication between the patient and the provider. Patient's verbal consent for virtual visit was obtained on 03/08/25 Documentation for date of: 03/08/25 Virtual exam Vital Signs Temp Pulse Resp BP Pulse Ox O2 Del Method 97.2 F 88 23 H 107/72 94 L Room Air 03/08/25 11:45 03/08/25 11:45 03/08/25 11:45 03/08/25 11:45 03/08/25 11:45 03/08/25 11:45 Objective Labs 03/08/25 05:25 03/08/25 05:25
== END 2025-03-08 11:40 | disposition home or self-care (01) | DRG 54 ==
LOC: SERX 16:17 → SERHOLD 18:05 → S2NX 23:39
PROVIDERS: Admitting Provider Internal Medicine; Emergency Provider Emergency Medicine; PCP Specialist; Visit Provider Internal Medicine
DX: G43.409 Hemiplegic migraine, not intractable, without status migrainosus (principal); R53.1 Weakness; E11.9 Type 2 diabetes mellitus without complications; R31.9 Hematuria, unspecified; E78.1 Pure hyperglyceridemia; E78.00 Pure hypercholesterolemia, unspecified; Z79.4 Long term (current) use of insulin; Z79.84 Long term (current) use of oral hypoglycemic drugs; Z88.2 Allergy status to sulfonamides
CPT/HCPCS: 36415; 70450; 70496; 70498; 70544; 71045; 80048; 80053; 80061; 80307; 81001; 83036; 83735; 84100; 84443; 84484; 84703; 85025; 85610; 85730; 87086; 92610; 93005; 93306; 96361; 96374; 97162; 99285; A4649; J1650; J1815; J2765; J3480; J7120; Q9967; A9270